=== PATIENT | male | born 1935 | race Caucasian/White ===

== ENCOUNTER 2022-06-02 16:25 | Inpatient (IN) | payer MEDICARE, BC, SELFPAY ==
[2022-06-02] VITALS (7 sets, daily range): BP systolic 151–176; BP diastolic 58–76; PULSE 60–72; RESP 20; TEMP 36.6–36.8; O2SAT 91–92; BMI 30.5
--- NOTE | 2022-06-02 17:11 | CRLHL7_ITS ---
For Patients: As a result of the Cures Act, medical imaging exams and procedure reports are released immediately into your electronic medical record. You may view this report before your referring provider. If you have questions, please contact your health care provider. INDICATION: Congestive heart failure. TECHNIQUE: Chest 1 views. COMPARISON: None. FINDINGS: Cardiovascular and mediastinum: Mild cardiomegaly with aortic arch calcifications. Left chest wall pacemaking device. Lungs and pleural spaces: Increased interstitial markings. Small bilateral pleural effusions. No pneumothorax. Bones and soft tissues: No significant findings. IMPRESSION: Mild pulmonary edema with small pleural effusions, likely related to CHF. Dictated by Luis Herbert MD @ 06/02/2022 7:11:15 PM (Electronically Signed)
--- NOTE | 2022-06-02 17:30 | P.IMHP_ITS ---
Hospitalist- H&P: HPI History of Present Illness Date Seen: 06/02/22 Chief complaint: Direct Admin Narrative: ADMISSION HISTORY AND PHYSICAL - HOSPITALIST Chief Complaint: Everybody is worried about my low oxygen sats. 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 His original appointment, 8 days ago, was for itchy skin. He then was noted to have saturations on room air at 88%. He tells me ?everyone got excited? - he goes on to tell me that throughout the summer he has had increasing dyspnea on exertion. He loves to garden and has noted he has has to sit more often and feels more short of breath. This has accelerated in the last 14 days. He has been unable to sleep flat and he wakes up feeling short of breath in the middle of the night. It sounds as if he has 2-3 pillow orthopnea. Yesterday he was trying to walk to the mailbox and felt very short of breath. He made it just inside his door and had a syncopal event. He was uninjured. He does not complain of palpitations or chest pain. He denies arm pain or shoulder pain. He does notice now as it has been pointed out that he has some swelling in his ankles. After his appointment 8 days ago he was started on oral furosemide 40 mg q.a.m.. He continued to be hypoxic and his PCP, Dr. Martini, ordered home oxygen. At today's follow-up he remains hypoxic on room air, he did not bring his O2, and as described above he had a syncopal episode yesterday. He is seen today in the hospital room as a direct admit from Dr. Martini's office. Elizabeth, his , relates that his baseline weight is about 215-218. His weight in clinic and on the floor today's 225. His PCP contacted the hospital medicine service for direct admission for acute heart failure and to rule out other etiologies of his shortness of breath. I've updated the PFSH, medications and allergies in the [facility] tabs. INVESTIGATIONS: LABS/MICRO/ECG/IMAGING From the clinic he had labs twice: On May 28 his basic metabolic panel revealed a creatinine of 1.59 with a BUN of 26 (This is his baseline). Normal electrolytes. Glucose 104. His BNP was 251 (no baseline). He was noted to be anemic with H&H of 10.2 and 30.6. (this is a decrease from 12.4 in December 2021) On June 02 a follow-up CBC showed essentially the same anemia and profile as on the . The repeat potassium was 3.9. 01/25 chest x-ray showed an enlarged cardiac silhouette, small bilateral effusions right greater than left and findings consistent with interstitial edema. I do not see a recent echo. I see a carotid study from earlier this year, as well as a nuclear med stress test. The stress exam showed no significant myocardial ischemia. His EF was approximately 65%. No regional wall motion abnormalities. He was found to have 50-69% stenosis on both the right and left internal carotid arteries. After direct admit to the floor these labs were ordered: Hemoglobin 10.1, hematocrit 31.1. Iron 37, elevated TIBC, 7% saturation, ferritin 13.1 INR 1.12 Blood gas unremarkable Creatinine 0.6, BUN 37 A1c 6.62 Otherwise normal electrolytes Negative troponin BNP 2220 which is up from 200 8 days Chest x-ray Mild pulmonary edema with small pleural effusions, likely related to CHF. ECG shows a paced rhythm. REVIEW OF SYSTEMS: 12-point ROS completed with patient and negative unless otherwise stated in HPI or below. PHYSICAL EXAM: CODE STATUS: DNR/DNI CONSTITUTIONAL: Conversive, good historian. A/O. Knows setting and context. no obvious SOB. He did desat to 79% getting from wheelchair to scale to bed. VITAL SIGNS: see record. HEENT: Normocephalic, atraumatic. PERRL, EOMI, conjunctivae pink, no scleral icterus. Ears and nose externally normal. Pharynx normal. NECK: No JVD. No carotid bruit, no thyromegaly, no adenopathy. CHEST: Clear to auscultation bilaterally HEART: S1 and S2 normal. I do hear an S3. soft ejection murmur. edema 1+ MUSCULOSKELETAL: No gross joint deformity or swelling. NEURO: Cranial nerves intact. Grossly intact. No asymmetric findings. SKIN: healing liquid nitrogen [place] from [place] destruction by paintings restorer on the dorsum of hands and forearms. healing biopsy sites on his scalp/neck. PSYCHIATRIC: Euthymic. ADMIT TO MEDSURG: FLOOR CARE DVT: Lovenox GI: PO intake Time spent: 70 minutes examining patient, conferring with family and patient, care staff, developing care plan [facility] Medical History (Updated 06/02/22 @ 20:53 by Susan Ny MD) Anemia Cardiac conduction disorder Chronic anxiety Chronic kidney disease (CKD) Hypertension Pacemaker Surgical History H/O arthroscopy of shoulder History of hip replacement History of permanent cardiac pacemaker placement Status post excisional biopsy Social History (Updated 06/02/22 @ 17:51 by Susan Ny MD) Narrative: to [employer]. 60+ years. Retired from ?everything? Adult children. Lives independently. Loves to garden. Quit smoking in the early . Highest level of school completed/degree received: high school graduate Smoking Status: Former smoker Do you use any of these nicotine containing products: None How often do you have a drink containing alcohol: never AUDIT-C Alcohol total score: 0 Non-prescribed substance use: denies use service: Yes Meds Home Medications and Allergies Home Medications Medication Instructions Recorded Confirmed Type albuterol sulfate 90 mcg/actuation 2 puff inhalation Q4H PRN 06/02/22 06/02/22 History aerosol inhaler (Ventolin HFA) amoxicillin 500 mg capsule 2,000 mg PO . DIREC PRN 06/02/22 06/02/22 History ascorbic acid (vitamin C) 500 mg 250 mg PO DAILY 06/02/22 06/02/22 History tablet aspirin 81 mg tablet,delayed 81 mg PO MOTUWETHFRSA 06/02/22 06/02/22 History release (Adult Low Dose Aspirin) cetirizine 10 mg tablet (24Hour 10 mg PO BID 06/02/22 06/02/22 History Allergy) cholecalciferol (vitamin D3) 25 25 mcg PO DAILY PRN 06/02/22 06/02/22 History mcg (1,000 unit) tablet clobetasol 0.05 % topical ointment 1 applic topical BID 06/02/22 06/02/22 H istory docusate sodium 50 mg capsule 50 mg PO DAILY 06/02/22 06/02/22 History furosemide 40 mg tablet 40 mg PO DAILY 06/02/22 06/02/22 History levothyroxine 125 mcg tablet 125 mcg PO DAILY 06/02/22 06/02/22 History metoprolol tartrate 25 mg tablet 25 mg PO BID 06/02/22 06/02/22 History nifedipine 90 mg tablet,extended 90 mg PO DAILY 06/02/22 06/02/22 History release omeprazole 20 mg capsule,delayed 20 mg PO BID 06/02/22 06/02/22 History release pravastatin 20 mg tablet 20 mg PO HS 06/02/22 06/02/22 History sertraline 50 mg tablet 50 mg PO DAILY 06/02/22 06/02/22 History tramadol 50 mg tablet 50 mg PO BID 06/02/22 06/02/22 History Allergies Allergy/AdvReac Type Severity Reaction Status Date / Time cefaclor [From Ceclor] Allergy Hives Verified 06/02/22 16:56 doxazosin Allergy Verified 06/02/22 16:56 codeine AdvReac Verified 06/02/22 16:56 erythromycin base AdvReac Nausea Verified 06/02/22 16:56 lisinopril Allergy Uncoded 06/02/22 16:56 trazodone Allergy Anxiety Uncoded 06/02/22 16:56 Exam Const: Vital Signs, click to edit/add: Vital Signs - 24 hr 06/02/22 17:01 Temperature 98.0 F Pulse Rate [Left P ulse Oximeter] 72 Respiratory Rate 20 Blood Pressure [Ri ght Arm] 151/58 H Pulse Oximetry 92 Oxygen Delivery Me thod Nasal Cannula Oxygen Flow Rate 2 Assessment and Plan Assessment and plan (1) Acute respiratory failure, unspecified whether with hypoxia or hypercapnia: Problem comment: VBG unremarkable. 2 L per nasal cannula to keep sats at 90-92%. No sign of infection. Likely all heart failure. Diuresing. Echo tomorrow. Status: Acute (2) Syncope and collapse: Problem comment: First and only occurrence yesterday. Will place on telemetry and follow closely. Status: Acute (3) Dyspnea on exertion: Problem comment: Differential diagnosis includes heart failure, acute coronary syndrome, COPD Presentation and history and labs tonight most consistent with CHF. Status: Acute (4) Orthopnea: Status: Acute (5) PND (paroxysmal nocturnal dyspnea): Status: Acute (6) Pacemaker: Status: Acute (7) Cardiac conduction disorder: Problem comment: Paced - no cardiology office visits in the recent past. Device checks are up to date. Stress exam and carotid exam done earlier this year, reported above. Status: Acute (8) Chronic kidney disease (CKD): Status: Acute (9) Hypertension: Problem comment: Continue metoprolol, nifedipine Status: Acute (10) Chronic anxiety: Problem comment: Continue Zoloft Status: Acute (11) Anemia: Problem comment: Iron deficient, chronic disease. Trend. Status: Acute
[2022-06-02 17:41] LABS: HCO3 VBG 29 mmol/L (21-28); Ionized Calcium* 1.13 mmol/L (1.11-1.30); PCO2 VBG 46 mmHG (40-50); PO2 VBG 33.3 mmHG (25-47); pH VBG 7.407 (7.32-7.43)
[2022-06-02 17:43] LABS: Immature Reticulocyte Fraction 25.9 % (2.3-13.4); Lactate* 0.9 mmol/L (0.5-1.9); Reticulocyte Hemoglobin Equivi 22.1 pg (29.0-35.0); Reticulocyte Percent 2.6 % (0.5-2.0)
[2022-06-02 17:57] LABS: Albumin* 4.6 g/dL (3.3-5.0)
[2022-06-02 17:58] LABS: Chloride* 99 mmol/L (96-114); Potassium* 3.7 mmol/L (3.6-5.1); Sodium* 137 mmol/L (135-149)
[2022-06-02 18:00] LABS: Aspartate Amino Transferase* 23 U/L (12-35); Carbon Dioxide* 26 mmol/L (20-32); Creatinine* 1.6 mg/dL (0.5-1.5); Est. Creatinine Clearance* 36.38; Estimated Glomerular Filt Rate 42 ml/min; INR 1.12 (0.91-1.10); Prothrombin Time 14.8 Seconds
[2022-06-02 18:01] LABS: Alanine Aminotransferase* 10 U/L (4-50); Alkaline Phosphatase* 83 U/L (40-150); Blood Urea Nitrogen* 37 mg/dL (7-30); Calcium* 9.1 mg/dL (8.4-10.6); Glucose* 106 mg/dL (60-115); Total Protein* 8.1 g/dL (6.0-8.3)
[2022-06-02 18:04] LABS: Hemoglobin A1C* 6.62 % (0-5.6)
[2022-06-02 18:10] LABS: NT Pro B Type NatriureticPept* 2220 PG/mL (0-450)
[2022-06-02 18:21] LABS: Troponin I* < 0.01 ng/mL (0.01-0.04)
[2022-06-02 18:29] LABS: SARS PCR* Negative SARS-CoV-2 (Negative)
[2022-06-02 18:29] LABS: Iron* 37 ug/dL (49-181)
[2022-06-02 18:33] LABS: Appearance Urine Clear (Clear); Bilirubin Urine Negative (Negative); Blood Urine Negative (Negative); Color Urine Yellow (Yellow); Glucose Urine Negative (Negative); Ketones Urine Negative (Negative); Leukocyte Esterase Urine Negative (Negative); Nitrite Urine Negative (Negative); Protein Urine Negative (Negative); Urobilinogen Urine 0.2 (0.2-1.0); pH Urine 5.5 (5.0-8.5)
[2022-06-02 18:36] LABS: Ferritin* 13.1 ng/mL (17.9-464.0)
[2022-06-02] MEDS: FUROSEMIDE 10 MG/ML inj 80 MG IVP (18:37)
[2022-06-02] MEDS: CLOBETASOL 0.05% TOPICAL (18:37)
[2022-06-02] MEDS: POTASSIUM CHLORIDE 10 MEQ CAPSULE ER 20 MEQ PO (18:37)
[2022-06-02] MEDS: ASPIRIN 81 MG TABLET EC PO (18:37)
[2022-06-02 18:38] LABS: Percent Iron Saturation 7 % (20-50); Total Iron Binding Capacity 499 ug/dL (261-462)
[2022-06-02 18:53] LABS: RBC Urine 0-2 (0-2); WBC Urine 0-2 (0-5)
[2022-06-02 19:50] LABS: Basophils Absolute Auto 0.08 K/uL (0.00-0.30); Basophils Percent Auto 0.9 % (0.0-3.0); Eosinophils Absolute Auto 0.14 K/uL (0.00-0.50); Eosinophils Percent Auto 1.6 % (0.0-7.0); Hematocrit 31.1 % (37.0-53.0); Hemoglobin* 10.1 gm/dL (13.5-17.5); Immature Granulocytes Abs Auto 0.01 K/uL (0.00-0.30); Lymphocytes Percent Auto 15.6 % (20-44); Mean Corpuscular HGB Conc 33 gm/dL (32-36); Mean Corpuscular Hemoglobin 26 pg (26-34); Mean Corpuscular Volume 80 fL (80-100); Monocytes Percent Auto 13.1 % (0.0-11.0); Neutrophils Absolute Auto 6.07 K/uL (1.7-7.0); Neutrophils Percent Auto 68.7 % (42.0-72.0); Platelet Count* 126 K/uL (140-440); RDW Coefficient of Variation % 15.9 % (11.5-15.5); Red Blood Count 3.88 m/uL (4.30-5.90); White Blood Count* 8.84 K/uL (4.50-11.00)
[2022-06-02 19:55] LABS: Slide Review Reflex No
[2022-06-02] MEDS: CETIRIZINE HCL 10 MG TABLET PO (21:20)
[2022-06-02] MEDS: METOPROLOL TARTRATE 25 MG TABLET PO (21:20)
[2022-06-02] MEDS: PRAVASTATIN SODIUM 20 MG TABLET PO (21:20)
[2022-06-02] MEDS: MELATONIN 3 MG TABLET PO (21:20)
[2022-06-02] MEDS: TRAMADOL HCL 50 MG TABLET PO (21:20)
[2022-06-02] MEDS: ENOXAPARIN 40 MG/0.4 ML INJ SUBCUT (21:20)
--- NOTE | 2022-06-02 23:23 | PC.NURSE ---
End of Shift: Patient admitted to 277 direct from clinic. Patient pleasant and cooperative. Afebrile. O2 sats above 90% on 2L NC. Sats decrease to mid 80s on 2L with activity but recover quickly at rest. SOB with activity. Denies pain. Up to bathroom with SBA. Denies any lightheadedness or dizziness. Tolerating regular diet with no nausea. C/o itchy rash to back, cream applied as ordered. Multiple healing areas per patient from candy packer appointment on backs of hands/arms and scalp. Scattered bruises on both sides of back, right upper arm and bilateral upper legs.
[2022-06-03] VITALS (8 sets, daily range): BP systolic 136–174; BP diastolic 53–82; PULSE 60–81; RESP 20–22; TEMP 36.3–37.3; O2SAT 90–93
[2022-06-03] MEDS: LEVOTHYROXINE 125 MCG TABLET PO (06:24)
[2022-06-03] MEDS: OMEPRAZOLE 20 MG CAPSULE DR PO ×2 (06:24→16:56)
--- NOTE | 2022-06-03 06:55 | PC.NURSE ---
23-07: pt pleasant and cooperative. SBA to assist with O2 tubing. With activity pt desats to mid 80s, recovers quickly. Pt attempted to lie in semi fowlers to sleep- O2 sats dropped to low 80s. Was able to position pt more upright, sats maintained 88-92% on 3.5L via NC. pt states rash to his back is very much improved, no c/o itching.
[2022-06-03 07:33] LABS: HCO3 VBG 30 mmol/L (21-28); PCO2 VBG 41 mmHG (40-50); PO2 VBG 44.6 mmHG (25-47); pH VBG 7.477 (7.32-7.43)
[2022-06-03 07:37] LABS: Hematocrit 29.5 % (37.0-53.0); Hemoglobin* 9.7 gm/dL (13.5-17.5); Mean Corpuscular HGB Conc 33 gm/dL (32-36); Mean Corpuscular Hemoglobin 26 pg (26-34); Mean Corpuscular Volume 80 fL (80-100); Platelet Count* 124 K/uL (140-440); Red Blood Count 3.71 m/uL (4.30-5.90); White Blood Count* 8.75 K/uL (4.50-11.00)
[2022-06-03 07:43] LABS: Slide Review Reflex No
[2022-06-03 07:53] LABS: Albumin* 4.4 g/dL (3.3-5.0); Chloride* 98 mmol/L (96-114); Potassium* 3.8 mmol/L (3.6-5.1); Sodium* 136 mmol/L (135-149)
[2022-06-03 07:56] LABS: Blood Urea Nitrogen* 36 mg/dL (7-30); Carbon Dioxide* 29 mmol/L (20-32); Creatinine* 1.5 mg/dL (0.5-1.5); Estimated Glomerular Filt Rate 45 ml/min; Glucose* 109 mg/dL (60-115)
[2022-06-03 08:06] LABS: NT Pro B Type NatriureticPept* 1720 PG/mL (0-450)
[2022-06-03 08:09] LABS: Troponin I* 0.01 ng/mL (0.01-0.04)
[2022-06-03] MEDS: POTASSIUM CHLORIDE 10 MEQ CAPSULE ER 20 MEQ PO ×2 (08:53→17:55)
[2022-06-03] MEDS: CETIRIZINE HCL 10 MG TABLET PO ×2 (08:53→20:26)
[2022-06-03] MEDS: DOCUSATE SODIUM 100 MG CAPSULE PO (08:53)
[2022-06-03] MEDS: FUROSEMIDE 40 MG TABLET 80 MG PO (08:53)
[2022-06-03] MEDS: NIFEdipine 30 MG TAB.ER.24 90 MG PO (08:54)
[2022-06-03] MEDS: TRAMADOL HCL 50 MG TABLET PO ×2 (08:54→20:26)
[2022-06-03] MEDS: SERTRALINE 50 MG TABLET PO (08:54)
[2022-06-03] MEDS: METOPROLOL TARTRATE 25 MG TABLET PO ×2 (08:54→20:26)
[2022-06-03] MEDS: CLOBETASOL 0.05% TOPICAL ×2 (08:55→20:27)
--- NOTE | 2022-06-03 10:48 | NUTR.NU ---
RDN with nutrition screen related to diet and diet education. RDN visited with patient and designated caregiver, Elizabeth. Patient and caregiver declined diet education at this time - patient reported he has received diet education multiple times in the past. Patient nor designated caregiver has had questions or concerns at this time. RDN will continue to monitor.
[2022-06-03 13:40] LABS: D Dimer Quantitative* 1.04 ug/ml (0.00-0.50)
--- NOTE | 2022-06-03 14:50 | PC.NURSE ---
End of Shift: Pt has been pleasant. no pain. O2 sats above 90% on 3.5L NC in bed . Sats decrease to mid 80 on 3.5L with activity. encouraging smell the aleman and hold breath and blowing out the candles. very SOB with any activity. Up to bathroom with SBA and 02, he has tubbing to reach the BR. . he denies any lightheadedness or dizziness. he is eating, drinking and voiding with no problems he got 80 lasix this am. . C/o itchy rash to arms and back, cream applied . Multiple healing areas per patient from ward secretary appointment on backs of hands/arms and scalp. Scattered bruises on both sides of back, right upper arm and bilateral upper legs. he is using his call light. family was here visting
--- NOTE | 2022-06-03 16:39 | P.IMPN_ITS ---
Progress Note: A&P Assessment and plan (1) Heart failure: Problem details: Presents with exertional dyspnea, syncope, lower extremity edema. Echo pending. Continue to diurese. Status: Acute Assessment and Plan: Echocardiogram pending. (2) Iron deficiency anemia: Problem details: Cause unknown. Monitor and outpatient evaluation if stable Status: Acute (3) Syncope and collapse: Problem details: First and only occurrence yesterday. Will place on telemetry and follow closely. Status: Acute (4) Acute respiratory failure, unspecified whether with hypoxia or hypercapnia: Problem details: VBG unremarkable. 2 L per nasal cannula to keep sats at 90-92%. No sign of infection. Likely all heart failure. Diuresing. Echo tomorrow. Status: Acute (5) Chronic kidney disease (CKD): Problem details: Stable. Follow with diuresis. Status: Acute Plan Continue in hospital for ongoing evaluation and treatment of hypoxic respiratory failure. Patient symptoms are relatively mild but is hypoxia is moderate. Further investigation is warranted if he does not respond to diuresis as the treatment for his hypoxic respiratory failure Time Spent With Patient Total time spent: Total time spent today is 40 minutes, 25 minutes in coordination of care and discussing with patient and other providers management of heart failure and hypoxia Subjective Date Seen: 06/03/22 Interval history: 86-year-old male seen in followup of hospital admission with hypoxia. Patient was seen in clinic about a week ago for itching in his skin. At that time he was noted to be hypoxic but asymptomatic. Over last week this has gotten worse with progressive hypoxia and now he is experiencing dyspnea especially with exertion. He is not having any chest pain, cold, cough, fever. No previous history of heart failure. He does have a history of a pacemaker placement. No coronary disease. He was also found to have iron deficiency anemia. No history of this as well he was unaware of this diagnosis. He did have a relatively benign upper endoscopy 3 and half years ago showing a small area of esophagitis and a mild stricture. Last colonoscopy appears to have been about 12 years ago and was also benign. Exam Narrative: Exam Narrative: He is alert and appears in no distress. Breathing is unlabored. He is on 3 L per nasal cannula and has an O2 sat in in the low 90s, 92-93 at rest. Oropharynx is normal. Neck is supple out mass or adenopathy. Respirations with diminished breath sounds. A rare basilar crackle is noted. No wheezing. Cardiovascular: S1, S2, relatively regular rhythm. Abdomen: Bowel sounds active. Abdomen is soft without tenderness or mass. Extremities with 2+ edema bilaterally. Const: Vital Signs, click to edit/add: Vital Signs - 24 hr 06/02/22 17:01 06/02/22 17:00 06/02/22 17:02 Temperature 98.0 F Pulse Rate Pulse Rate [Left P ulse Oximeter] 72 Respiratory Rate 20 Blood Pressure [Ri ght Arm] 151/58 H Pulse Oximetry 92 92 92 Oxygen Delivery Me thod Nasal Cannula Nasal Cannula Oxygen Flow Rate 2 2 06/02/22 19:55 06/02/22 19:00 06/02/22 18:00 Temperature 97.8 F Pulse Rate 72 Pulse Rate [Left P ulse Oximeter] 72 Respiratory Rate 20 20 Blood Pressure [Ri ght Arm] 176/76 H Pulse Oximetry 92 91 Oxygen Delivery Me thod Nasal Cannula Nasal Cannula Oxygen Flow Rate 2 2 06/02/22 23:00 06/02/22 23:00 06/02/22 23:00 Temperature Pulse Rate 60 Pulse Rate [Left P ulse Oximeter] 63 Respiratory Rate 20 Blood Pressure [Ri ght Arm] Pulse Oximetry 91 Oxygen Delivery Me thod Oxygen Flow Rate 06/02/22 23:00 06/02/22 23:00 06/03/22 02:40 Temperature 98.3 F 97.4 F L Pulse Rate Pulse Rate [Left P ulse Oximeter] 63 67 Respiratory Rate 20 20 22 Blood Pressure [Ri ght Arm] 157/60 H 155/56 H Pulse Oximetry 91 91 93 Oxygen Delivery Me thod Nasal Cannula Nasal Cannula Nasal Cannula Oxygen Flow Rate 2 2 3.5 06/03/22 07:21 06/03/22 08:27 06/03/22 07:45 Temperature Pulse Rate 60 Pulse Rate [Left P ulse Oximeter] Respiratory Rate 20 Blood Pressure [Ri ght Arm] Pulse Oximetry 93 Oxygen Delivery Me thod Oxygen Flow Rate 06/03/22 07:45 06/03/22 07:45 06/03/22 11:15 Temperature 97.8 F 99.2 F Pulse Rate Pulse Rate [Left P ulse Oximeter] 60 69 Respiratory Rate 20 20 22 Blood Pressure [Ri ght Arm] 150/82 H 174/63 H Pulse Oximetry 91 91 93 Oxygen Delivery Me thod Nasal Cannula Nasal Cannula Nasal Cannula Oxygen Flow Rate 3.5 3.5 3.5 Documenting provider has reviewed patient's vital signs: yes Labs Labs: Laboratory Results - last 24 hr 06/02/22 06/02/22 06/02/22 17:30 17:30 17:30 WBC 8.84 RBC 3.88 L Hgb 10.1 L Hct 31.1 L MCV 80 MCH 26 MCHC 33 RDW Coeff of [place] 15.9 H Plt Count 126 L Neut % (Auto) 68.7 Lymph % (Auto) 15.6 L [place] % (Auto) 13.1 H Eos % (Auto) 1.6 Baso % (Auto) 0.9 Neut # (Auto) 6.07 Lymph # (Auto) 1.40 [place] # (Auto) 1.20 H Eos # (Auto) 0.14 Baso # (Auto) 0.08 Abs Immat Gran (auto) 0.01 Absolute Retic 0.10 H Percent Retic 2.6 H Immature Retic Fraction 25.9 H Retic Hgb Equivalent 22.1 L INR 1.12 H D-Dimer Quant (PE/DVT) VBG pH 7.407 VBG pCO2 46 VBG pO2 33.3 VBG HCO3 29 H Sodium Potassium Chloride Carbon Dioxide BUN Creatinine Estimated Creat Clear Estimated GFR Glucose Hemoglobin A1c Lactate Calcium Ionized Calcium Danie 1.13 Magnesium Iron TIBC % Saturation Ferritin Total Bilirubin AST ALT Alkaline Phosphatase Troponin I NT-Pro-B Natriuret Pep Total Protein Albumin Urine Color Urine Appearance Urine pH Ur Specific [place] Urine Protein Urine Glucose (UA) Urine Ketones Urine Blood Urine Nitrite Urine Bilirubin Urine Urobilinogen Ur Leukocyte Esterase Urine RBC Urine WBC Ur Squamous Epith Cells Urine Bacteria SARS-CoV-2 (PCR) 06/02/22 06/02/22 06/02/22 17:30 17:30 17:30 WBC RBC Hgb Hct MCV MCH MCHC RDW Coeff of [place] Plt Count Neut % (Auto) Lymph % (Auto) [place] % (Auto) Eos % (Auto) Baso % (Auto) Neut # (Auto) Lymph # (Auto) [place] # (Auto) Eos # (Auto) Baso # (Auto) Abs Immat Gran (auto) Absolute Retic Percent Retic Immature Retic Fraction Retic Hgb Equivalent INR D-Dimer Quant (PE/DVT) VBG pH VBG pCO2 VBG pO2 VBG HCO3 Sodium 137 Potassium 3.7 Chloride 99 Carbon Dioxide 26 BUN 37 H Creatinine 1.6 H Estimated Creat Clear 36.38 Estimated GFR 42 Glucose 106 Hemoglobin A1c Lactate 0.9 Calcium 9.1 Ionized Calcium Danie Magnesium 2.0 Iron 37 L TIBC 499 H % Saturation 7 L Ferritin Total Bilirubin 1.0 AST 23 ALT 10 Alkaline Phosphatase 83 Troponin I < 0.01 L NT-Pro-B Natriuret Pep 2220 H Total Protein 8.1 Albumin 4.6 Urine Color Urine Appearance Urine pH Ur Specific [place] Urine Protein Urine Glucose (UA) Urine Ketones Urine Blood Urine Nitrite Urine Bilirubin Urine Urobilinogen Ur Leukocyte Esterase Urine RBC Urine WBC Ur Squamous Epith Cells Urine Bacteria SARS-CoV-2 (PCR) 06/02/22 06/02/22 06/02/22 17:30 17:30 17:34 WBC RBC Hgb Hct MCV MCH MCHC RDW Coeff of [place] Plt Count Neut % (Auto) Lymph % (Auto) [place] % (Auto) Eos % (Auto) Baso % (Auto) Neut # (Auto) Lymph # (Auto) [place] # (Auto) Eos # (Auto) Baso # (Auto) Abs Immat Gran (auto) Absolute Retic Percent Retic Immature Retic Fraction Retic Hgb Equivalent INR D-Dimer Quant (PE/DVT) VBG pH VBG pCO2 VBG pO2 VBG HCO3 Sodium Potassium Chloride Carbon Dioxide BUN Creatinine Estimated Creat Clear Estimated GFR Glucose Hemoglobin A1c 6.62 H Lactate Calcium Ionized Calcium Danie Magnesium Iron TIBC % Saturation Ferritin 13.1 L Total Bilirubin AST ALT Alkaline Phosphatase Troponin I NT-Pro-B Natriuret Pep Total Protein Albumin Urine Color Urine Appearance Urine pH Ur Specific [place] Urine Protein Urine Glucose (UA) Urine Ketones Urine Blood Urine Nitrite Urine Bilirubin Urine Urobilinogen Ur Leukocyte Esterase Urine RBC Urine WBC Ur Squamous Epith Cells Urine Bacteria SARS-CoV-2 (PCR) Negative SARS-CoV-2 06/02/22 06/03/22 06/03/22 18:25 07:25 07:25 WBC 8.75 RBC 3.71 L Hgb 9.7 L Hct 29.5 L MCV 80 MCH 26 MCHC 33 RDW Coeff of [place] Plt Count 124 L Neut % (Auto) Lymph % (Auto) [place] % (Auto) Eos % (Auto) Baso % (Auto) Neut # (Auto) Lymph # (Auto) [place] # (Auto) Eos # (Auto) Baso # (Auto) Abs Immat Gran (auto) Absolute Retic Percent Retic Immature Retic Fraction Retic Hgb Equivalent INR D-Dimer Quant (PE/DVT) VBG pH VBG pCO2 VBG pO2 VBG HCO3 Sodium 136 Potassium 3.8 Chloride 98 Carbon Dioxide 29 BUN 36 H Creatinine 1.5 Estimated Creat Clear 38.80 Estimated GFR 45 Glucose 109 Hemoglobin A1c Lactate Calcium 9.0 Ionized Calcium Danie Magnesium Iron TIBC % Saturation Ferritin Total Bilirubin AST ALT Alkaline Phosphatase Troponin I 0.01 NT-Pro-B Natriuret Pep 1720 H Total Protein Albumin 4.4 Urine Color Yellow Urine Appearance Clear Urine pH 5.5 Ur Specific [place] 1.010 Urine Protein Negative Urine Glucose (UA) Negative Urine Ketones Negative Urine Blood Negative Urine Nitrite Negative Urine Bilirubin Negative Urine Urobilinogen 0.2 Ur Leukocyte Esterase Negative Urine RBC 0-2 Urine WBC 0-2 Ur Squamous Epith Cells None Urine Bacteria None SARS-CoV-2 (PCR) 06/03/22 06/03/22 07:25 13:17 WBC RBC Hgb Hct MCV MCH MCHC RDW Coeff of [place] Plt Count Neut % (Auto) Lymph % (Auto) [place] % (Auto) Eos % (Auto) Baso % (Auto) Neut # (Auto) Lymph # (Auto) [place] # (Auto) Eos # (Auto) Baso # (Auto) Abs Immat Gran (auto) Absolute Retic Percent Retic Immature Retic Fraction Retic Hgb Equivalent INR D-Dimer Quant (PE/DVT) 1.04 H VBG pH 7.477 H VBG pCO2 41 VBG pO2 44.6 VBG HCO3 30 H Sodium Potassium Chloride Carbon Dioxide BUN Creatinine Estimated Creat Clear Estimated GFR Glucose Hemoglobin A1c Lactate Calcium Ionized Calcium Danie Magnesium Iron TIBC % Saturation Ferritin Total Bilirubin AST ALT Alkaline Phosphatase Troponin I NT-Pro-B Natriuret Pep Total Protein Albumin Urine Color Urine Appearance Urine pH Ur Specific [place] Urine Protein Urine Glucose (UA) Urine Ketones Urine Blood Urine Nitrite Urine Bilirubin Urine Urobilinogen Ur Leukocyte Esterase Urine RBC Urine WBC Ur Squamous Epith Cells Urine Bacteria SARS-CoV-2 (PCR)
[2022-06-03] MEDS: POTASSIUM BICARB 25 MEQ EFFERVESCENT TAB PO (16:55)
[2022-06-03] MEDS: FUROSEMIDE 10 MG/ML inj 40 MG IVP (16:56)
[2022-06-03] MEDS: ASPIRIN 81 MG TABLET EC PO (17:05)
--- NOTE | 2022-06-03 19:33 | PC.NURSE ---
[id number] ?Pt alert and oriented x4 Pt. denies pain. O2 sats above 90% on 3.5L NC in bed? . Sats decrease to mid 80 on 3.5L with activity.? encouraging smell the aleman and hold breath and blowing out the candles. Pt. SOB w/activity. ?Up to bathroom w/SBA and 02,? pts. tube reaches the BR. he denies any lightheadedness or dizziness. he is eating, drinking and voiding with no problems Pt. got 40mg IVP furosemide this evening and up to the bathroom frequently. Pt. uses his call light and understands bed and chair alarms are on for safety.
[2022-06-03] MEDS: ENOXAPARIN 40 MG/0.4 ML INJ SUBCUT (20:25)
[2022-06-03] MEDS: PRAVASTATIN SODIUM 20 MG TABLET PO (20:27)
[2022-06-04] VITALS (7 sets, daily range): BP systolic 152–164; BP diastolic 59–69; PULSE 63–81; RESP 18–20; TEMP 36.4–37.1; O2SAT 91–93
[2022-06-04] MEDS: OMEPRAZOLE 20 MG CAPSULE DR PO (06:40)
[2022-06-04] MEDS: LEVOTHYROXINE 125 MCG TABLET PO (06:40)
[2022-06-04 07:19] LABS: HCO3 VBG 33 mmol/L (21-28); PCO2 VBG 48 mmHG (40-50); PO2 VBG 56.2 mmHG (25-47)
--- NOTE | 2022-06-04 07:22 | PC.NURSE ---
shift note -: pleasant and cooperative. SBA. 3L O2 via NC and maintaining 88-93%. Pt able to lie flat to sleep and not desat (unlike previous night). Pt encouraged to rotate side lying positions. Pt desats with ambulation to low 80s, rebounds quickly with deep breaths and rest. VSS. Afebrile. Pt desat to 71% on RA as he removed his NC while in BR. 5L O2 placed on pt to assist with rebound for short period.
[2022-06-04 07:37] LABS: Basophils Absolute Auto 0.07 K/uL (0.00-0.30); Basophils Percent Auto 0.7 % (0.0-3.0); Hematocrit 31.3 % (37.0-53.0); Hemoglobin* 10.1 gm/dL (13.5-17.5); Immature Granulocytes Abs Auto 0.03 K/uL (0.00-0.30); Lymphocytes Percent Auto 14.1 % (20-44); Mean Corpuscular HGB Conc 32 gm/dL (32-36); Mean Corpuscular Hemoglobin 26 pg (26-34); Mean Corpuscular Volume 79 fL (80-100); Monocytes Percent Auto 15.7 % (0.0-11.0); Neutrophils Percent Auto 67.2 % (42.0-72.0); Platelet Count* 141 K/uL (140-440); RDW Coefficient of Variation % 15.5 % (11.5-15.5); Red Blood Count 3.94 m/uL (4.30-5.90); White Blood Count* 9.83 K/uL (4.50-11.00)
[2022-06-04 07:45] LABS: Slide Review Reflex No
[2022-06-04 07:47] LABS: Chloride* 95 mmol/L (96-114); Potassium* 3.7 mmol/L (3.6-5.1); Sodium* 137 mmol/L (135-149)
[2022-06-04 07:50] LABS: Blood Urea Nitrogen* 34 mg/dL (7-30); Calcium* 9.1 mg/dL (8.4-10.6); Carbon Dioxide* 30 mmol/L (20-32); Creatinine* 1.5 mg/dL (0.5-1.5); Estimated Glomerular Filt Rate 45 ml/min; Glucose* 114 mg/dL (60-115)
[2022-06-04] MEDS: ACETAMINOPHEN 325 MG TABLET PO ×2 (08:49→14:28)
[2022-06-04] MEDS: FUROSEMIDE 40 MG TABLET 80 MG PO (08:50)
[2022-06-04] MEDS: SERTRALINE 50 MG TABLET PO (08:50)
[2022-06-04] MEDS: CETIRIZINE HCL 10 MG TABLET PO (08:50)
[2022-06-04] MEDS: DOCUSATE SODIUM 100 MG CAPSULE PO (08:50)
[2022-06-04] MEDS: POTASSIUM CHLORIDE 10 MEQ CAPSULE ER 20 MEQ PO (08:50)
[2022-06-04] MEDS: TRAMADOL HCL 50 MG TABLET PO (08:51)
[2022-06-04] MEDS: NIFEdipine 30 MG TAB.ER.24 90 MG PO (08:51)
[2022-06-04] MEDS: CLOBETASOL 0.05% TOPICAL (08:52)
[2022-06-04] MEDS: METOPROLOL TARTRATE 25 MG TABLET PO (08:52)
--- NOTE | 2022-06-04 13:42 | RESP.RT ---
Patient requires increased supplemental O2 with activity over his home 2L O2 prescription. He does have portable O2 at home and has been using his O2. At this time he is requiring 4L O2 with activity to recover, but he still desaturates and does not want to use more O2.
--- NOTE | 2022-06-04 14:50 | PC.NURSE ---
End of Shift: Pt his pleasant. he is joking with staff/ ? right side abd pain 2-5/10 pain. he got pain meds this am and po Tylenol he said pain was better and after he said pain was not better and po Tylenol was given again. O2 sats above 90% on 2.0 NC in bed? . Sats decrease to mid 80 on 2 L with activity.? and 72 % on RA. we are still encouraging smell the aleman and hold breath and blowing out the candles. ? still SOB with any activity but better than yesterday. . ? Up to bathroom with SBA and 02,? he has tubbing to reach the BR.? he still denies any lightheadedness or dizziness. He is eating, drinking and voiding, with no problems? he got 80 mg po Lasix again today. C/o of a itchy rash back, cream applied. Multiple healing areas per patient from leach cell operator appointment on backs of hands/arms and scalp. bruises on both sides of back, right upper arm and bilateral upper legs.? he is using his call light.? and oldest son was here visiting? he is currently getting a echo
--- NOTE | 2022-06-04 15:54 | P.DS_ITS ---
DS: Providers Provider Date Seen: 06/04/22 Date of admission: 06/02/22 17:01 Primary care physician: Lion Martini MD Admitting Clinician: Susan Ny MD Attending Physician on discharge: Susan Ny MD Date of Discharge: 06/04/22 DS: Diagnosis Discharge Diagnosis (1) Hypoxia: Status: Acute Problem details: Cause is uncertain but leading considerations include pulmonary hypertension, heart failure with preserved ejection fraction, chronic lung disease. Will be discharged to continue on oxygen pending outpatient evaluation (2) Pulmonary hypertension: Status: Acute Problem details: New diagnosis on preliminary echo report. Outpatient followup (3) Heart failure with preserved ejection fraction: Status: Acute Problem details: Echocardiogram on preliminary report is unremarkable except for pulmonary hypertension with a right ventricular pressure of 40 mmHg plus right atrial pressure (4) Iron deficiency anemia: Status: Acute Problem details: Cause unknown. No evidence of bleeding. Hemoglobin is stable. Outpatient evaluation warranted. (5) Syncope and collapse: Status: Acute Problem details: Syncope prior to admission. Asymptomatic during hospital stay (6) Chronic kidney disease (CKD): Status: Acute Problem details: Stable. Follow with diuresis. Outpatient followup of electrolytes and renal function DS: Summary Hospital Course Hospital Course: 86-year-old male admitted to the hospital with hypoxia, worsening exertional dyspnea, orthopnea and a syncopal episode. Evaluation during the hospital stay included chest x-ray which suggested mild pulmonary edema. He was treated with diuretics for this and had improvement but not resolution of his hypoxia. He was only mildly symptomatic with his hypoxia. He did not have a fever. No significant cough or chest pain. Echocardiogram was unremarkable except for pulmonary hypertension with a right ventricular systolic pressure around 40 mmHg plus right atrial pressure. This appeared to be a new finding. Status at Discharge Functional status at discharge: independent ambulation Overall status at discharge: patient is back to baseline Time Spent with Patient Time attestation: Total time spent providing and/or coordinating discharge services: Time spent: Greater than 30 minutes Exam Narrative: Exam Narrative: He is alert and appears in no distress. Respirations with occasional basilar crackle. No wheezing. Fair air exchange all lung [place]. Cardiovascular: S1, S2, regular rate and rhythm. No murmur gallop or rub. Abdomen: Bowel sounds active. Abdomen is soft without tenderness or mass. Extremities with 1+ edema bilaterally. Const: Vital Signs, click to edit/add: Vital Signs - 24 hr 06/03/22 23:00 06/03/22 23:00 06/03/22 23:00 Temperature 98.2 F Pulse Rate Pulse Rate [Left P ulse Oximeter] 72 72 Respiratory Rate 20 20 Blood Pressure [Ri ght Arm] 169/71 H Pulse Oximetry 91 91 Oxygen Delivery Me thod Nasal Cannula Oxygen Flow Rate 3 06/03/22 23:00 06/03/22 19:00 06/03/22 23:00 Temperature 98.2 F Pulse Rate 72 Pulse Rate [Left P ulse Oximeter] 81 Respiratory Rate 20 20 Blood Pressure [Ri ght Arm] 163/61 H Pulse Oximetry 91 93 Oxygen Delivery Me thod Nasal Cannula Nasal Cannula Oxygen Flow Rate 3 3 06/04/22 03:00 06/04/22 07:49 06/04/22 07:30 Temperature 97.6 F Pulse Rate 63 Pulse Rate [Left P ulse Oximeter] 71 Respiratory Rate 20 Blood Pressure [Ri ght Arm] 154/69 H Pulse Oximetry 93 93 Oxygen Delivery Me thod Nasal Cannula Oxygen Flow Rate 3 06/04/22 07:30 06/04/22 07:30 06/04/22 07:30 Temperature 98.3 F Pulse Rate Pulse Rate [Left P ulse Oximeter] 74 74 Respiratory Rate 20 18 Blood Pressure [Ri ght Arm] 164/64 H Pulse Oximetry 93 93 Oxygen Delivery Me thod Nasal Cannula Nasal Cannula Oxygen Flow Rate 2 2 06/04/22 11:47 Temperature 98.8 F Pulse Rate Pulse Rate [Left P ulse Oximeter] 65 Respiratory Rate 20 Blood Pressure [Ri ght Arm] 157/59 H Pulse Oximetry 91 Oxygen Delivery Me thod Nasal Cannula Oxygen Flow Rate 2 Documenting provider has reviewed patient's vital signs: yes DS: Data Data Completed and Pending Labs on day of discharge: Labs from last 24 hours 06/04/22 06/04/22 06/04/22 06:56 06:56 06:56 WBC 9.83 RBC 3.94 L Hgb 10.1 L Hct 31.3 L MCV 79 L MCH 26 MCHC 32 RDW Coeff of Torrey 15.5 Plt Count 141 Neut % (Auto) 67.2 Lymph % (Auto) 14.1 L [place] % (Auto) 15.7 H Eos % (Auto) 2.0 Baso % (Auto) 0.7 Neut # (Auto) 6.60 Lymph # (Auto) 1.40 [place] # (Auto) 1.50 H Eos # (Auto) 0.20 Baso # (Auto) 0.07 Abs Immat Gran (auto) 0.03 VBG pH 7.450 H VBG pCO2 48 VBG pO2 56.2 H VBG HCO3 33 H Sodium 137 Potassium 3.7 Chloride 95 L Carbon Dioxide 30 BUN 34 H Creatinine 1.5 Estimated Creat Clear 38.80 Estimated GFR 45 Glucose 114 Calcium 9.1 Discharge Plan Discharge Disposition: Home, Self-Care Date of Admission: 06/02/22 17:01 Primary Care Provider: Lion Martini Condition: Improved Anticipated Discharge Date/Time: 06/04/22 17:00 Discharge Medications: New potassium chloride 10 mEq Capsule, Extended Release 20 meq PO BIDWM Qty: 120 0RF sennosides-docusate sodium [Stool Softener-Laxative] 8.6-50 mg Tablet 1 tab PO BID PRNQty: 60 0RF Continued albuterol sulfate [Ventolin HFA] 90 mcg/actuation HFA aerosol inhaler 2 puff INHALATION Q4H PRN amoxicillin 500 mg capsule 2,000 mg PO . DIREC PRN Label Comments: TAKE 4 CAPSULES 1/2 HOUR BEFORE DENTAL PROCEDURE Rx Instructions: PRIOR TO DENTAL APPTS levothyroxine 125 mcg tablet 125 mcg PO DAILY metoprolol tartrate 25 mg tablet 25 mg PO BID nifedipine 90 mg tablet extended release 90 mg PO DAILY omeprazole 20 mg capsule,delayed release(DR/EC) 20 mg PO BID pravastatin 20 mg tablet 20 mg PO HS sertraline 50 mg tablet 50 mg PO DAILY tramadol 50 mg tablet 50 mg PO BID Rx Instructions: TAKE ONE TABLET BY MOUTH IN THE MORNING AND ONE TABLET AT BEDTIME. MAY USE EXTRA 1/2 TABLET DAILY NEEDED aspirin [Adult Low Dose Aspirin] 81 mg tablet,delayed release (DR/EC) 81 mg PO MOTUWETHFRSA Rx Instructions: TAKES 6 DAYS PER WEEK CURRENTLY ascorbic acid (vitamin C) 500 mg tablet 250 mg PO DAILY clobetasol 0.05 % ointment 1 applic TOPICAL BID cetirizine [24Hour Allergy] 10 mg tablet 10 mg PO BID cholecalciferol (vitamin D3) 25 mcg (1,000 unit) tablet 25 mcg PO DAILY PRN Rx Instructions: TAKES IN WINTERTIME docusate sodium 50 mg capsule 50 mg PO DAILY Changed furosemide 40 mg tablet 40 mg PO BID@ Qty: 60 0RF Discharge Orders: Discharge Order (Routine); Ordered 06/04/22 Ordered By: Virgil Cunningham Activity Restrictions/Additional Instructions: Resume your oxygen at home as prescribed by your doctor in the clinic. See your doctor next week for a follow-up appointment to assess your breathing and heart failure. You will also need blood tests to check your kidney function and electrolytes next week. Consider getting a sleep study to evaluate for sleep apnea. Check your weight every day. If you are gaining weight or getting swelling in her ankles or more short of breath or coughing he likely will need more diuretic. Your echocardiogram shows a condition called pulmonary hypertension. For now y our treatment is supplemental oxygen. You may need to see a specialist for this as well. Activity Level: Activity as Tolerated Discharge Diet: 2 gm Sodium Follow Up Appointments: Lion Martini MD [Primary Care Provider] - (In 5-7 days) Forms: [employer] Info Instructions
== END 2022-06-04 17:18 | disposition home or self-care (01) | DRG 291 ==
PROVIDERS: Family Medicine; Admitting Provider Family Medicine; PCP Family Medicine; Visit Provider Family Medicine
DX: I13.0 Hypertensive heart and chronic kidney disease with heart failure and stage 1 through stage 4 chronic kidney disease, or unspecified chronic kidney disease (principal); J96.02 Acute respiratory failure with hypercapnia; J96.01 Acute respiratory failure with hypoxia; I50.30 Unspecified diastolic (congestive) heart failure; I27.20 Pulmonary hypertension, unspecified; N18.9 Chronic kidney disease, unspecified; Z95.0 Presence of cardiac pacemaker; I45.9 Conduction disorder, unspecified; F41.9 Anxiety disorder, unspecified; D50.9 Iron deficiency anemia, unspecified
CPT/HCPCS: 36415; 71045; 80048; 80053; 81003; 81015; 82040; 82330; 82728; 82803; 83036; 83540; 83550; 83605; 83735; 83880; 84484; 85025; 85027; 85045; 85379; 85610; 87635; 93005; 93306; 93325; 94761; 97110; 97116; 97162; 97165; 97535; G0378; A9270; J1650; J1940

== ENCOUNTER 2022-06-16 13:17 | Outpatient (CLI) | payer MEDICARE, BC, SELFPAY | END 2022-06-16 13:18 | disposition home or self-care (01) | LOC: AMB 06-19 18:44 | PROVIDERS: PCP Family Medicine; Visit Provider Family Medicine | DX: R55 Syncope and collapse (principal) | CPT/HCPCS: A0425; A0427 ==

== ENCOUNTER 2022-06-16 13:41 | Inpatient (IN) | payer MEDICARE, BC, SELFPAY ==
[2022-06-16] VITALS (8 sets, daily range): BP systolic 129–186; BP diastolic 53–69; PULSE 67–84; RESP 18; TEMP 36.3–36.8; O2SAT 92–99; BMI 27.8; BMI 28.1
--- NOTE | 2022-06-16 14:06 | ED_ITS ---
HPI - General Adult General Time Seen by Provider: 14:07 Date Seen: 06/16/22 Chief complaint: Fall/Minor Trauma Stated complaint: Fall Time Seen by Provider: 06/16/22 14:06 Source: patient, RN notes reviewed and other (Received phone call from Dr. Martini) Mode of arrival: ambulatory Limitations: no limitations History of Present Illness HPI narrative: Patient is an 86-year-old male sent by EMS from clinic. He has had 4 falls in the last couple days. Two of them happening today per her report. He was in seeing Cardiology at [facility], follow-up of his chronic diastolic heart failure. He was reportedly admitted recently here at our hospital for acute diastolic heart failure. Military Nurse thought perhaps he was maybe too dry. He did decrease Lasix. He did get a CT scan of his head for his fall today at home. Coming out of CT scan, patient was walking, started to feel wobbly and fell and hit the back of his head. There is no open wound, no loss of consciousness. Patient is on aspirin, no other blood thinners. They wondered if he should perhaps have some fluids. His primary care provider Dr. Martini did not feel it was safe for him to go home at this time. He resides independently in [place] with his . Up until about 2 weeks ago he was active gardening, started to become too short of breath and was hospitalized for CHF. They wonder if he maybe needs some fluids. He does have a pacemaker in it is felt that this current pacemaker should have 3 years of life left in it. Patient states he has just been wobbly when he has fallen. Denies any dizziness or lightheadedness, no sense of irregular heartbeat, no shortness of breath. He denies any loss of consciousness. Denies any current headache. No visual changes. Related Data Home Medications Medication Instructions Recorded Confirmed albuterol sulfate 90 mcg/actuation 2 puff inhalation Q4H PRN 06/02/22 06/02/22 aerosol inhaler (Ventolin HFA) amoxicillin 500 mg capsule 2,000 mg PO . DIREC PRN 06/02/22 06/02/22 ascorbic acid (vitamin C) 500 mg 250 mg PO DAILY 06/02/22 06/02/22 tablet aspirin 81 mg tablet,delayed 81 mg PO MOTUWETHFRSA 06/02/22 06/02/22 release (Adult Low Dose Aspirin) cetirizine 10 mg tablet (24Hour 10 mg PO BID 06/02/22 06/02/22 Allergy) cholecalciferol (vitamin D3) 25 25 mcg PO DAILY PRN 06/02/22 06/02/22 mcg (1,000 unit) tablet clobetasol 0.05 % topical ointment 1 applic topical BID 06/02/22 06/02/22 docusate sodium 50 mg capsule 50 mg PO DAILY 06/02/22 06/02/22 levothyroxine 125 mcg tablet 125 mcg PO DAILY 06/02/22 06/02/22 metoprolol tartrate 25 mg tablet 25 mg PO BID 06/02/22 06/02/22 nifedipine 90 mg tablet,extended 90 mg PO DAILY 06/02/22 06/02/22 release omeprazole 20 mg capsule,delayed 20 mg PO BID 06/02/22 06/02/22 release pravastatin 20 mg tablet 20 mg PO HS 06/02/22 06/02/22 sertraline 50 mg tablet 50 mg PO DAILY 06/02/22 06/02/22 tramadol 50 mg tablet 50 mg PO BID 06/02/22 06/02/22 Previous Rx's Medication Instructions Recorded furosemide 40 mg tablet 40 mg PO BID@,16 #60 tabs 06/04/22 potassium chloride 10 mEq 20 meq PO BIDWM #120 caps 06/04/22 capsule,extended release sennosides 8.6 mg-docusate sodium 1 tab PO BID PRN #60 tabs 06/04/22 50 mg tablet (Stool Softener-Laxative) Allergies Allergy/AdvReac Type Severity Reaction Status Date / Time cefaclor [From [facility]] Allergy Hives Verified 06/02/22 16:56 doxazosin Allergy Verified 06/02/22 16:56 codeine AdvReac Verified 06/02/22 16:56 erythromycin base AdvReac Nausea Verified 06/02/22 16:56 lisinopril Allergy Uncoded 06/02/22 16:56 trazodone Allergy Anxiety Uncoded 06/02/22 16:56 Review of Systems Status of ROS: Reports: 10 or more systems reviewed and unremarkable except as noted in History and below [facility] Medical History (Updated 06/16/22 @ 16:36 by Brenna Stone MD) Anemia Cardiac conduction disorder Chronic anxiety Chronic kidney disease (CKD) Dyspnea on exertion Heart failure Hypertension Iron deficiency anemia Orthopnea Pacemaker PND (paroxysmal nocturnal dyspnea) Surgical History H/O arthroscopy of shoulder History of hip replacement History of permanent cardiac pacemaker placement Status post excisional biopsy Social History (Updated 06/02/22 @ 17:51 by Susan Ny MD) Narrative: to [employer]. 60+ years. Retired from ?everything? Adult children. Lives independently. Loves to garden. Quit smoking in the early . Highest level of school completed/degree received: high school graduate Smoking Status: Former smoker Do you use any of these nicotine containing products: None How often do you have a drink containing alcohol: never AUDIT-C Alcohol total score: 0 Non-prescribed substance use: denies use service: Yes Exam Const: Vital Signs, click to edit/add: Vital Signs - 24 hr 06/16/22 13:46 Temperature 97.3 F L Pulse Rate [Pulse Oximeter] 70 Respiratory Rate 18 Blood Pressure [Le ft Upper Arm] 158/63 H Pulse Oximetry 92 Oxygen Delivery Me thod Nasal Cannula Documenting provider has reviewed patient's vital signs: yes Common normals: no apparent distress, average body habitus, oriented x3, no limitations, healthy appearing and alert General appearance: cooperative, comfortable and well kempt HENMT: Common normals: normocephalic, hearing grossly normal bilaterally, external ears normal, external nose normal, nasal mucous membranes and turbinates normal, moist oral mucous membranes, oropharynx normal and dentition normal Head and scalp: normocephalic Nose: external nose normal and nasal mucous membranes and turbinates normal External ear: external ears normal Other: Has right frontal scalp hematoma. I cannot find any visible or palpable posterior wound. No visible hematoma, certainly no open wounds. No midline tenderness of his neck, good range of motion of his neck. Eye: Common normals: PERRL, EOMs intact bilaterally, conjunctivae normal and no scleral icterus Conjunctiva: conjunctiva(e) normal Pupil: PERRL Neck & C-Spine: Common normals: full ROM, no lymphadenopathy, supple, no meningeal signs, no JVD and thyroid normal Thyroid: thyroid normal Resp: Common normals: normal respiratory effort, no retractions, no use of accessory muscles and clear to auscultation bilaterally Auscultation: clear to auscultation bilaterally Cardio: Common normals: no JVD, regular rate, regular rhythm, S1 normal heart sound, S2 normal heart sound, no gallops, no clicks and no rub Rate: regular rate Rhythm: regular rhythm Heart sounds: S1 normal and S2 normal Other: Very soft systolic murmur heard left sternal border. GI: Common normals: Normal to inspection, nondistended, normoactive bowel sounds present, soft to palpation, non-tender and no hepatosplenomegaly Palpation: soft and no hepatosplenomegaly Back & Pelvis: Common normals: thoracic and lumbar spine normal to inspection and no thoracic nor lumbar tenderness Extremity: Common normals: normal to inspection, full ROM, normal capillary refill, no joint enlargement, no clubbing, cyanosis or edema, no calf tenderness and no pedal edema Neuro: [place] Coma Scale: document GCS findings [place] coma scale eye opening: Spontaneous (4) [place] coma scale verbal response: Orientated (5) [place] coma scale motor response: Obey commands (6) [place] coma scale total score: 15 Common normals: oriented x3, CN's II-XII intact bilaterally, moves all extremities, no focal motor deficits and no sensory deficits noted Sensorium/orientation: alert Meningeal signs: no meningeal signs Speech: speech normal Psych: Appearance: well kempt Course Course Hospital Course: He will be on cardiac monitoring, pulse oximetry. Will get a full complement of labs. We will consider other etiologies outside of being over diuresed. Will certainly have orthostatic vitals done. We will need to repeat his head CT as he hit the back of his head. Falls could certainly be from many etiologies. Consultations Consultation #1: Have spoken with our hospitalist regarding this patient. He has acute on emergency services director laisha kidney injury, mild hyponatremia and hypokalemia. His hyponatremia may be affecting him as it is new for him. His head CT is showing no acute intracranial pathology. He still does have some pleural effusions and stable cardiomegaly on his chest x-ray, thus, putting him at risk for CHF of over diuresed. I am starting some gentle maintenance IV fluids with normal saline with 20 mEq potassium. The hospitalists will be down to assess the patient. Time: 15:36 Vital Signs Vital signs: Initial Vital Signs Temperature 97.3 F L 06/16/22 13:46 Temperature Source Temporal Artery Scan 06/16/22 13:46 Pulse Rate 70 06/16/22 13:46 Respiratory Rate 18 06/16/22 13:46 Blood Pressure 158/63 H 06/16/22 13:46 Blood Pressure Mean 94 06/16/22 13:46 Blood Pressure Position Supine 06/16/22 13:46 Pulse Oximetry 92 06/16/22 13:46 Oxygen Delivery Method 06/16/22 13:46 Vital Signs Temperature 97.3 F L 06/16/22 13:46 Pulse Rate 70 06/16/22 13:46 Respiratory Rate 18 06/16/22 13:46 Blood Pressure 158/63 H 06/16/22 13:46 Pulse Oximetry 92 06/16/22 13:46 Oxygen Delivery Method 06/16/22 13:46 Temperature 97.3 F L 06/16/22 13:46 Pulse Rate 70 06/16/22 13:46 Respiratory Rate 18 06/16/22 13:46 Blood Pressure 158/63 H 06/16/22 13:46 Pulse Oximetry 92 06/16/22 13:46 Oxygen Delivery Method 06/16/22 13:46 Medical Decision Making Lab Data Lab results reviewed: Yes I reviewed the patient's lab results Labs: Lab Results 06/16/22 06/16/22 06/16/22 Range/Units 14:12 14:12 14:12 WBC 7.67 (4.50-11.00) K/uL RBC 4.21 L (4.30-5.90) m/uL Hgb 10.8 L (13.5-17.5) gm/dL Hct 33.6 L (37.0-53.0) % MCV 80 (80-100) fL MCH 26 (26-34) pg MCHC 32 (32-36) gm/dL RDW Coeff of Tor[place] 15.0 (11.5-15.5) % Plt Count 170 (140-440) K/uL Neut % (Auto) 66.4 (42.0-72.0) % Lymph % (Auto) 16.2 L (20-44) % [place] % (Auto) 14.1 H (0.0-11.0) % Eos % (Auto) 1.8 (0.0-7.0) % Baso % (Auto) 1.2 (0.0-3.0) % Neut # (Auto) 5.10 (1.7-7.0) K/uL Lymph # (Auto) 1.20 (0.90-2.90) K/uL [place] # (Auto) 1.10 H (0.00-0.90) K/UL Eos # (Auto) 0.14 (0.00-0.50) K/uL Baso # (Auto) 0.09 (0.00-0.30) K/uL Abs Immat Gran (auto) 0.02 (0.00-0.30) K/uL Sodium 132 L (135-149) mmol/L Potassium 3.4 L (3.6-5.1) mmol/L Chloride 88 L (96-114) mmol/L Carbon Dioxide 31 (20-32) mmol/L BUN 67 H (7-30) mg/dL Creatinine 2.7 H (0.5-1.5) mg/dL Estimated Creat Clear 21.56 Estimated GFR 22 ml/min Glucose 146 H (60-115) mg/dL Lactate 1.3 (0.5-1.9) mmol/L Calcium 9.4 (8.4-10.6) mg/dL Magnesium 2.4 (1.5-2.6) mg/dL Total Bilirubin 0.5 (0.1-1.5) mg/dL AST 34 (12-35) U/L ALT 16 (4-50) U/L Alkaline Phosphatase 81 (40-150) U/L Troponin I < 0.01 L (0.01-0.04) ng/mL NT-Pro-B Natriuret Pep 755 H (0-450) PG/mL Total Protein 8.2 (6.0-8.3) g/dL Albumin 4.5 (3.3-5.0) g/dL Ethyl Alcohol < 0.01 L (0.01-0.03) % SARS-CoV-2 (PCR) (Negative) 06/16/22 Range/Units 14:25 WBC (4.50-11.00) K/uL RBC (4.30-5.90) m/uL Hgb (13.5-17.5) gm/dL Hct (37.0-53.0) % MCV (80-100) fL MCH (26-34) pg MCHC (32-36) gm/dL RDW Coeff of [place] (11.5-15.5) % Plt Count (140-440) K/uL Neut % (Auto) (42.0-72.0) % Lymph % (Auto) (20-44) % [place] % (Auto) (0.0-11.0) % Eos % (Auto) (0.0-7.0) % Baso % (Auto) (0.0-3.0) % Neut # (Auto) (1.7-7.0) K/uL Lymph # (Auto) (0.90-2.90) K/uL [place] # (Auto) (0.00-0.90) K/UL Eos # (Auto) (0.00-0.50) K/uL Baso # (Auto) (0.00-0.30) K/uL Abs Immat Gran (auto) (0.00-0.30) K/uL Sodium (135-149) mmol/L Potassium (3.6-5.1) mmol/L Chloride (96-114) mmol/L Carbon Dioxide (20-32) mmol/L BUN (7-30) mg/dL Creatinine (0.5-1.5) mg/dL Estimated Creat Clear Estimated GFR ml/min Glucose (60-115) mg/dL Lactate (0.5-1.9) mmol/L Calcium (8.4-10.6) mg/dL Magnesium (1.5-2.6) mg/dL Total Bilirubin (0.1-1.5) mg/dL AST (12-35) U/L ALT (4-50) U/L Alkaline Phosphatase (40-150) U/L Troponin I (0.01-0.04) ng/mL NT-Pro-B Natriuret Pep (0-450) PG/mL Total Protein (6.0-8.3) g/dL Albumin (3.3-5.0) g/dL Ethyl Alcohol (0.01-0.03) % SARS-CoV-2 (PCR) Negative SARS-CoV-2 (Negative) Imaging Data CT scan - head: Attestation: I have reviewed the pertinent imaging results. Radiologist's impression: Patient: [facility] Facility:?[facility] Patient ID:?[id number] Site Patient ID:?[id number] Site :?[id number] Study:?CT Head W/O-06/16/2022 2:41:47 PM Ordering Physician:Larry Ceja Final Report: Indication: Fall, hit head Technique: Volumetric multidetector CT images of the head were obtained without the administration of low osmolar intravenous contrast. Comparison: None available Findings: There is no intra-axial or extra-axial fluid collection. There is no mass effect or midline shift. There is age-related cortical atrophy with moderate sulcal widening and ex vacuo dilatation of the lateral ventricles. There are chronic small vessel disease changes in the subcortical and periventricular white matter without lost whipple-white differentiation. The orbits and their contents are grossly within normal limits. The bony calvarium is grossly intact. The paranasal sinuses are clear. The mastoid air cells are well aerated. Impression: Age-related and chronic small-vessel disease changes of the brain without acute intracranial abnormality. Please note that all CT scans at this facility use dose modulation, iterative reconstruction, and/or weight-based dosing when appropriate to reduce radiation dose to as low as reasonably achievable. Dictated by Petros Balbuena MD @ 06/16/2022 3:29:06 PM (Electronic Signature) Chest x-ray: Attestation: I have reviewed the pertinent imaging results. Radiologist's impression: Patient: [facility] Facility:?[facility] Patient ID:?[id number] Site Patient ID:?[id number]. Site :?[id number] Study:?XRay Chest 2 IMAGES-06/16/2022 2:49:49 PM Ordering Physician:Larry Ceja Final Report: INDICATION: Recent falls, CHF. TECHNIQUE: Chest 2 views. COMPARISON: Chest radiograph 06/02/2022. FINDINGS: There is an indistinct appearance of the costophrenic angles bilaterally which may be due to small effusions. Bibasilar atelectasis. No pneumothorax. Calcified granuloma right upper lung. Stable cardiomegaly. No significant pulmonary vascular congestion. Left chest pacemaker with leads in stable position. The bones are unremarkable. IMPRESSION: 1. Probable small bilateral pleural effusions and bibasilar atelectasis. 2. Stable cardiomegaly. Dictated by Jana Georges MD @ 06/16/2022 3:22:38 PM (Electronic Signature) ECG Data Attestation: I personally reviewed and interpreted this ECG as follows: (Sinus rhythm with first-degree AV block, 64 beats per minute, right bundle branch block, left anterior fascicular block. QT corrected 493 milliseconds.) Prior ECG tracings: not available for review Critical Care Time Critical Care Time Critical Care Time: No Discharge Plan Discharge Clinical Impression: Acute kidney injury, Falls, Acute hyponatremia Patient Disposition: Admitted As Inpatient Prescriptions: No Action albuterol sulfate [Ventolin HFA] 90 mcg/actuation HFA aerosol inhaler 2 puff INHALATION Q4H PRN amoxicillin 500 mg capsule 2,000 mg PO . DIREC PRN Label Comments: TAKE 4 CAPSULES 1/2 HOUR BEFORE DENTAL PROCEDURE Rx Instructions: PRIOR TO DENTAL APPTS levothyroxine 125 mcg tablet 125 mcg PO DAILY metoprolol tartrate 25 mg tablet 25 mg PO BID nifedipine 90 mg tablet extended release 90 mg PO DAILY omeprazole 20 mg capsule,delayed release(DR/EC) 20 mg PO BID pravastatin 20 mg tablet 20 mg PO HS sertraline 50 mg tablet 50 mg PO DAILY tramadol 50 mg tablet 50 mg PO BID Rx Instructions: TAKE ONE TABLET BY MOUTH IN THE MORNING AND ONE TABLET AT BEDTIME. MAY USE EXTRA 1/2 TABLET DAILY NEEDED aspirin [Adult Low Dose Aspirin] 81 mg tablet,delayed release (DR/EC) 81 mg PO MOTUWETHFRSA Rx Instructions: TAKES 6 DAYS PER WEEK CURRENTLY ascorbic acid (vitamin C) 500 mg tablet 250 mg PO DAILY clobetasol 0.05 % ointment 1 applic TOPICAL BID cetirizine [24Hour Allergy] 10 mg tablet 10 mg PO BID cholecalciferol (vitamin D3) 25 mcg (1,000 unit) tablet 25 mcg PO DAILY PRN Rx Instructions: TAKES IN WINTERTIME docusate sodium 50 mg capsule 50 mg PO DAILY potassium chloride 10 mEq Capsule, Extended Release 20 meq PO BIDWM Qty: 120 0RF sennosides-docusate sodium [Stool Softener-Laxative] 8.6-50 mg Tablet 1 tab PO BID PRNQty: 60 0RF furosemide 40 mg tablet 40 mg PO BID@09,16 Qty: 60 0RF Follow Up/Referrals: Lion Martini MD [Primary Care Provider] -
--- NOTE | 2022-06-16 14:16 | ED.NURSE ---
pt placed on heart monitor, ekg done. #20 sl placed L ac, blood drawn off iv start.
--- NOTE | 2022-06-16 14:19 | CRLHL7_ITS ---
For Patients: As a result of the Century Cures Act, medical imaging exams and procedure reports are released immediately into your electronic medical record. You may view this report before your referring provider. If you have questions, please contact your health care provider. Indication: Fall, hit head Technique: Volumetric multidetector CT images of the head were obtained without the administration of low osmolar intravenous contrast. Comparison: None available Findings: There is no intra-axial or extra-axial fluid collection. There is no mass effect or midline shift. There is age-related cortical atrophy with moderate sulcal widening and ex vacuo dilatation of the lateral ventricles. There are chronic small vessel disease changes in the subcortical and periventricular white matter without lost whipple-white differentiation. The orbits and their contents are grossly within normal limits. The bony calvarium is grossly intact. The paranasal sinuses are clear. The mastoid air cells are well aerated. Impression: Age-related and chronic small-vessel disease changes of the brain without acute intracranial abnormality. Please note that all CT scans at this facility use dose modulation, iterative reconstruction, and/or weight-based dosing when appropriate to reduce radiation dose to as low as reasonably achievable. Dictated by Petros Balbuena MD @ 06/16/2022 3:29:06 PM (Electronically Signed)
--- NOTE | 2022-06-16 14:19 | CRLHL7_ITS ---
For Patients: As a result of the Cures Act, medical imaging exams and procedure reports are released immediately into your electronic medical record. You may view this report before your referring provider. If you have questions, please contact your health care provider. INDICATION: Recent falls, CHF. TECHNIQUE: Chest 2 views. COMPARISON: Chest radiograph 06/02/2022. FINDINGS: There is an indistinct appearance of the costophrenic angles bilaterally which may be due to small effusions. Bibasilar atelectasis. No pneumothorax. Calcified granuloma right upper lung. Stable cardiomegaly. No significant pulmonary vascular congestion. Left chest pacemaker with leads in stable position. The bones are unremarkable. IMPRESSION: 1. Probable small bilateral pleural effusions and bibasilar atelectasis. 2. Stable cardiomegaly. Dictated by Jana Georges MD @ 06/16/2022 3:22:38 PM (Electronically Signed)
[2022-06-16 14:32] LABS: Basophils Absolute Auto 0.09 K/uL (0.00-0.30); Basophils Percent Auto 1.2 % (0.0-3.0); Eosinophils Absolute Auto 0.14 K/uL (0.00-0.50); Eosinophils Percent Auto 1.8 % (0.0-7.0); Hematocrit 33.6 % (37.0-53.0); Hemoglobin* 10.8 gm/dL (13.5-17.5); Immature Granulocytes Abs Auto 0.02 K/uL (0.00-0.30); Lymphocytes Percent Auto 16.2 % (20-44); Mean Corpuscular HGB Conc 32 gm/dL (32-36); Mean Corpuscular Hemoglobin 26 pg (26-34); Mean Corpuscular Volume 80 fL (80-100); Monocytes Percent Auto 14.1 % (0.0-11.0); Neutrophils Percent Auto 66.4 % (42.0-72.0); Platelet Count* 170 K/uL (140-440); Red Blood Count 4.21 m/uL (4.30-5.90); White Blood Count* 7.67 K/uL (4.50-11.00)
[2022-06-16 14:44] LABS: Lactate* 1.3 mmol/L (0.5-1.9)
[2022-06-16 14:46] LABS: Slide Review Reflex No
[2022-06-16 14:58] LABS: Albumin* 4.5 g/dL (3.3-5.0); Chloride* 88 mmol/L (96-114)
[2022-06-16 14:59] LABS: Potassium* 3.4 mmol/L (3.6-5.1); Sodium* 132 mmol/L (135-149)
[2022-06-16 15:01] LABS: Aspartate Amino Transferase* 34 U/L (12-35); Bilirubin Total* 0.5 mg/dL (0.1-1.5); Carbon Dioxide* 31 mmol/L (20-32); Creatinine* 2.7 mg/dL (0.5-1.5); Est. Creatinine Clearance* 21.56; Estimated Glomerular Filt Rate 22 ml/min
[2022-06-16 15:02] LABS: Alanine Aminotransferase* 16 U/L (4-50); Alkaline Phosphatase* 81 U/L (40-150); Blood Urea Nitrogen* 67 mg/dL (7-30); Calcium* 9.4 mg/dL (8.4-10.6); Glucose* 146 mg/dL (60-115); Magnesium* 2.4 mg/dL (1.5-2.6); Total Protein* 8.2 g/dL (6.0-8.3)
[2022-06-16 15:04] LABS: Ethanol* < 0.01 % (0.01-0.03)
[2022-06-16 15:11] LABS: NT Pro B Type NatriureticPept* 755 PG/mL (0-450)
[2022-06-16 15:15] LABS: Troponin I* < 0.01 ng/mL (0.01-0.04)
[2022-06-16 15:25] LABS: SARS PCR* Negative SARS-CoV-2 (Negative)
--- NOTE | 2022-06-16 16:38 | W.PC.EDHO ---
Primary Language: Upper Sorbian Preferred Language: Orientation Status: [] Alert & Oriented [] Slight Confusion [] Known Dx Dementia Transfers By: [] Assist of 1 [] Assist of 2 [] Lift Description of Symptoms ED Triage Present Problem pt falling more recently, fell this am at home in Description kitchen, has goose egg to R forehead. already had appt at [facility], went there and had ct of head. was going back to [facility] today for another appt when fell at clinic, hit back of head on plastic wheelchair spoke. has lump to back of head. also has bleeding and swelling to r elbow. pt on asa, no other blood thinners. wears 2 L O2 at home ED Triage Date of Onset of 06/16/22 Symptoms Female History Patient [place] Coma Scale [place] coma scale total score 15 [place] coma scale total score 15 Pain Pain Intensity [Generalized] 2 Pain Intensity [Generalized] 2 Pain Intensity 2 Oxygen Administration Pulse Oximetry 92 Oxygen Delivery Method Nasal Cannula Cardiac Monitoring EKG Method 12 Lead
--- NOTE | 2022-06-16 16:59 | PM.IMHP1 ---
Hospitalist- H&P: HPI History of Present Illness Time Seen by Provider: 15:30 Date Seen: 06/16/22 Chief complaint: Fall Narrative: Arsenio Demarco is a 86 year old man for to the emergency department by his primary care physician, Dr. Martini, orthostasis, hypotensive syncope, with 4 falls in the last 2 days consequence of the same. Patient presented to the clinic today to see his mine motor engineer in regard to recent hospitalization for acute on chronic diastolic heart failure. while still at home and getting ready to go to the clinic he had 1 of these episodes where he felt wobbly on his feet and suddenly he was on floor. Evidently he struck right frontal aspect of his forehead. Had no loss of consciousness. Did not think much of it because the day prior he had 2 other similar episodes. While at the clinic a decision was made by his primary care physician to get a CT scan of the head. Coming out of the CT scan he started to walk, again felt wobbly, fell and struck the back of his head. Had no loss of consciousness. Orthostatic blood pressures and pulses were not obtained then. His physician then referred him to the emergency department for further assessment. Review of Systems Status of ROS: Reports: 10 or more systems reviewed and unremarkable except as noted in History and below Narrative: Up until roughly 2 weeks ago he states he had been active, gardening. Started to notice increasing dyspnea, presented to the hospital emergency department was found to be in acute diastolic heart failure and was admitted at that time. Adjustments were made in his medication regimen including increasing diuresis and potassium supplementation. He has been following with his primary care physician since but adjustments have not been made in his diuretics up until today when he disease is mine motor engineer, his mine motor engineer recommended decreasing the dose of furosemide from 40 mg p.o. b.i.d. down to 40 mg p.o. once daily. Also he recommended reduction of the potassium supplementation from 20 mEq twice daily to 20 mg once daily. Denies any chest heaviness, pressure, tightness, or pain. Denies dyspnea at rest, paroxysmal nocturnal dyspnea, or orthopnea. No longer has dyspnea with exertion. Denies any edema. Denies nausea or vomiting. Acknowledges fair amount of weight loss. He is unable to gas how much. I review his medical records here and note that on 02 June his weight was 102 kg. By 04 June his weight was 97 kg. Today his weight is 93 kg. Thus he has lost 9 kg since 06/02/2022. His episodes of orthostasis and falls have increased during this interim of time. Patient had a pacemaker interrogation today. This demonstrated atrial paced rhythm at 67% of the time and ventricular paced rhythm at 1% of the time. There are no ventricular high rates. There was appropriate heart rate distribution. No evidence of dysrhythmia noted. His biggest concern has been pruritus this whole time. He indicates this started 3-4 weeks ago. Has seen his primary care physician and installation superintendent in regard to the same. Has been prescribed triamcinolone 0.1% cream as well as betamethasone cream for this. He indicates he is not getting much relief from the use of these medicines. It is not clear that he is actually using these routinely or appropriately. He states he has gets as much benefit from his simply washing his back with soap and water. States the pruritus is on his back and arms. His notes that he has more bruising as well in these same areas. Does not describe pruritus after shower. In fact notes that pruritus is better after washing up. Lesions on his back are resolving. Still has some lesions on his arms that are not resolving. States bowel and bladder function have been satisfactory. Has not had any focal motor neurologic deficits. Denies polyuria, polydipsia, polyphagia. Denies heat or cold intolerance. No recent travel. Denies blood loss of any sort. No recent febrile illnesses. Denies fever, rigors, diaphoresis. Denies dysuria, urgency, frequency, hematuria. Denies constipation or diarrhea. Denies heartburn, dyspepsia, dysphagia, odynophagia. Has chronic sense of stiffness and aching of his neck. [facility] Medical History Acute respiratory failure, unspecified whether with hypoxia or hypercapnia Anemia Cardiac conduction disorder Carotid sinus hypersensitivity Chronic anxiety Chronic kidney disease (CKD) Chronic neck pain Coronary artery disease Dermatitis Dyspnea on exertion Gastroesophageal reflux disease Heart failure Hyperlipidemia Hypertension Hypoxia Iron deficiency anemia Orthopnea Pacemaker PND (paroxysmal nocturnal dyspnea) Pulmonary hypertension Right bundle branch block (RBBB) with left anterior fascicular block Syncope and collapse Surgical History H/O arthroscopy of shoulder History of hip replacement History of permanent cardiac pacemaker placement Status post excisional biopsy Social History Narrative: to [employer]. 60+ years. Retired from ?everything? Adult children. Lives independently. Loves to garden. Quit smoking in the early . Highest level of school completed/degree received: high school graduate Smoking Status: Former smoker Do you use any of these nicotine containing products: None How often do you have a drink containing alcohol: never AUDIT-C Alcohol total score: 0 Non-prescribed substance use: denies use service: Yes Meds Home Medications and Allergies Home Medications Medication Instructions Recorded Confirmed Type albuterol sulfate 90 mcg/actuation 2 puff inhalation Q4H PRN 06/02/22 06/16/22 History aerosol inhaler (Ventolin HFA) amoxicillin 500 mg capsule 2,000 mg PO . DIREC PRN 06/02/22 06/16/22 History ascorbic acid (vitamin C) 500 mg 500 mg PO Q48H 06/02/22 06/16/22 History tablet aspirin 81 mg tablet,delayed 81 mg PO MOTUWETHFRSA 06/02/22 06/16/22 History release (Adult Low Dose Aspirin) cetirizine 10 mg tablet (24Hour 10 mg PO DAILY 06/02/22 06/16/22 History Allergy) cholecalciferol (vitamin D3) 25 25 mcg PO DAILY PRN 06/02/22 06/16/22 History mcg (1,000 unit) tablet clobetasol 0.05 % topical ointment 1 applic topical BID PRN 06/02/22 06/16/22 History docusate sodium 50 mg capsule 50 mg PO BID 06/02/22 06/16/22 History levothyroxine 125 mcg tablet 125 mcg PO DAILY 06/02/22 06/16/22 History metoprolol tartrate 25 mg tablet 25 mg PO BID 06/02/22 06/16/22 History nifedipine 90 mg tablet,extended 90 mg PO DAILY 06/02/22 06/16/22 History release omeprazole 20 mg capsule,delayed 20 mg PO BID 06/02/22 06/16/22 History release pravastatin 20 mg tablet 20 mg PO HS 06/02/22 06/16/22 History sertraline 50 mg tablet 50 mg PO DAILY 06/02/22 06/16/22 History tramadol 50 mg tablet 50 mg PO BID 06/02/22 06/16/22 History furosemide 40 mg tablet 40 mg PO DAILY 06/16/22 06/16/22 History polyethylene glycol 3350 17 17 g PO DAILY PRN 06/16/22 06/16/22 History gram/dose oral powder (Miralax) potassium chloride 10 mEq 20 meq PO DAILY 06/16/22 06/16/22 History capsule,extended release Allergies Allergy/AdvReac Type Severity Reaction Status Date / Time cefaclor [From [facility]] Allergy Hives Verified 06/02/22 16:56 doxazosin Allergy Verified 06/02/22 16:56 codeine AdvReac Verified 06/02/22 16:56 erythromycin base AdvReac Nausea Verified 06/02/22 16:56 lisinopril Allergy Uncoded 06/02/22 16:56 trazodone Allergy Anxiety Uncoded 06/02/22 16:56 Exam Narrative: Exam Narrative: No acute distress. Appears comfortable. Alert and oriented to self, place, time, situation. Friendly, cooperative. Sometimes allows his to speak on his own behalf. Seems anxious particularly about his itching. Mood and affect are congruent. Hearing is mildly impaired. Vision is grossly normal. Midline nasal septum normal nasal mucosa. Dentition in fair repair. Neck is supple. Midline trachea. Normal thyroid. No JVD, hepatojugular reflux, or carotid bruits. No lymphadenopathy. Lungs clear to auscultation without wheezing, rhonchi, or rales. No CVA tenderness. Heart tones with regular rhythm, normal S1-S2, without murmur, gallop, or rub. PMI not displaced. Abdomen with active lungs, soft, nontender. Extremities without edema. Capillary refill upper extremities less than 3 seconds. Independent transfer and station. No obvious focal motor neurologic deficits. Resolving examined this type rash on his back. Still has eczematous type rash on forearms. Skin is generally dry. Const: Vital Signs, click to edit/add: Vital Signs - 24 hr 06/16/22 13:46 Temperature 97.3 F L Pulse Rate [Pulse Oximeter] 70 Respiratory Rate 18 Blood Pressure [Le ft Upper Arm] 158/63 H Pulse Oximetry 92 Oxygen Delivery Me thod Nasal Cannula Documenting provider has reviewed patient's vital signs: yes Hospitalist - H&P: Result Labs Labs: Short CBC 06/16/22 Range/Units 14:12 WBC 7.67 (4.50-11.00) K/uL Hgb 10.8 L (13.5-17.5) gm/dL Hct 33.6 L (37.0-53.0) % Plt Count 170 (140-440) K/uL BMP 06/16/22 14:12 Sodium 132 L Potassium 3.4 L Chloride 88 L Carbon Dioxide 31 BUN 67 H Creatinine 2.7 H Glucose 146 H Calcium 9.4 Cardiac Enzymes 06/16/22 Range/Units 14:12 Troponin I < 0.01 L (0.01-0.04) ng/mL Liver Function 06/16/22 Range/Units 14:12 Total Bilirubin 0.5 (0.1-1.5) mg/dL AST 34 (12-35) U/L ALT 16 (4-50) U/L Alkaline Phosphatase 81 (40-150) U/L Albumin 4.5 (3.3-5.0) g/dL Imaging Chest x-ray: Attestation: I have reviewed the pertinent imaging results. Radiologist's impression: Mild cardiomegaly. Possible bilateral small pleural effusions with atelectasis bibasilarly. Unchanged from previously. CT scan - head: Attestation: I have reviewed the pertinent imaging results. Radiologist's impression: Age-related chronic small-vessel disease of brain noted. No acute changes. Assessment and Plan Assessment and plan (1) Falls: Status: Acute (2) Contusion of forehead: Status: Acute (3) Orthostasis: Status: Acute (4) Dehydration: Problem comment: likely from over-diuresis Status: Acute (5) Hypotensive syncope: Problem comment: likely from over-diuresis Status: Acute (6) Acute kidney injury: Status: Acute (7) Heart failure with preserved ejection fraction: Problem comment: Echocardiogram on preliminary report is unremarkable except for pulmonary hypertension with a right ventricular pressure of 40 mmHg plus right atrial pressure Status: Acute (8) Acute hyponatremia: Status: Acute (9) Pruritus: Problem comment: Etiology not yet determined. Status: Acute Assessment and Plan: Differential diagnosis includes eczematous dermatitis, drug reaction, endocrine associated pruritus, malignancy associated pruritus ( such as, mycosis fungoides, Sezary syndrome, folliculotropic mycosis fungoides, Hodgkin's lymphoma ), etc. (10) Iron deficiency anemia: Problem comment: Cause unknown. No evidence of bleeding. Hemoglobin is stable. Outpatient evaluation warranted. Status: Acute (11) Chronic kidney disease (CKD): Problem comment: Stable. Follow with diuresis. Outpatient followup of electrolytes and renal function Status: Acute (12) Chronic anxiety: Problem comment: Continue Zoloft Status: Acute (13) Hypertension: Problem comment: Continue metoprolol, nifedipine Status: Acute (14) Pacemaker: Status: Acute Plan 1. Reviewed my impression with the patient and his . 2. Explained to them our focus on addressing his falls and hypotensive syncope. 3. IV fluid rehydration. 4. Decrease furosemide diuresis from 40 b.i.d. to 40 daily. 5. Monitor orthostatic blood pressures and pulses. Also monitor weight daily. 6. Continue with his skin cares. 7. Continue with his mood stabilizing medication regimen. 8. Answered his and his 's questions to their satisfaction. They are agreeable with above stated plans and recommendations. 9. Will certainly need ongoing assessments and interventions with his primary care physician in the outpatient setting hereafter.
[2022-06-16 18:33] LABS: Thyroid Stimulating Hormone* 0.737 uIU/mL (0.270-4.20)
[2022-06-16] MEDS: 0.9 % SODIUM CHLORIDE 500 ML 500 ML IV (18:49)
[2022-06-16] MEDS: METOPROLOL TARTRATE 25 MG TABLET PO (20:54)
[2022-06-16] MEDS: PRAVASTATIN SODIUM 20 MG TABLET PO (20:54)
[2022-06-16] MEDS: ACETAMINOPHEN 325 MG TABLET 650 MG PO (20:54)
[2022-06-16] MEDS: OMEPRAZOLE 20 MG CAPSULE DR PO (20:55)
[2022-06-16] MEDS: DOCUSATE SODIUM 100 MG CAPSULE PO (20:55)
[2022-06-16] MEDS: TRAMADOL HCL 50 MG TABLET 25 MG PO (20:55)
[2022-06-17] VITALS (9 sets, daily range): BP systolic 124–169; BP diastolic 61–80; PULSE 66–83; RESP 18–20; TEMP 36.5–36.7; O2SAT 91–99
--- NOTE | 2022-06-17 00:13 | PC.NURSE ---
Patient up to the BR with SBA, walker and gait belt. When patient was getting into the BR. He had an episode where he felt faint and needed to sit. After sitting for a couple minutes, patient was able to return to the chair safely with assist of 2, walker and gait belt.
[2022-06-17] MEDS: LEVOTHYROXINE 125 MCG TABLET PO (06:38)
[2022-06-17 07:01] LABS: Hematocrit 32.6 % (37.0-53.0); Hemoglobin* 10.5 gm/dL (13.5-17.5); Mean Corpuscular HGB Conc 32 gm/dL (32-36); Mean Corpuscular Hemoglobin 26 pg (26-34); Mean Corpuscular Volume 80 fL (80-100); Platelet Count* 170 K/uL (140-440); White Blood Count* 9.19 K/uL (4.50-11.00)
[2022-06-17 07:12] LABS: Slide Review Reflex No
[2022-06-17 07:22] LABS: Albumin* 4.4 g/dL (3.3-5.0); Chloride* 88 mmol/L (96-114); Potassium* 3.4 mmol/L (3.6-5.1); Sodium* 133 mmol/L (135-149)
[2022-06-17 07:25] LABS: Blood Urea Nitrogen* 58 mg/dL (7-30); Carbon Dioxide* 34 mmol/L (20-32); D Dimer Quantitative* 1.15 ug/ml (0.00-0.50); Estimated Glomerular Filt Rate 32 ml/min; Glucose* 122 mg/dL (60-115)
[2022-06-17 07:26] LABS: Calcium* 9.5 mg/dL (8.4-10.6); Magnesium* 2.5 mg/dL (1.5-2.6); Phosphorus* 4.6 mg/dL (2.5-4.5)
[2022-06-17 07:28] LABS: C Reactive Protein* 1.4 mg/dL (0.5-1.0)
[2022-06-17 07:31] LABS: NT Pro B Type NatriureticPept* 558 PG/mL (0-450)
--- NOTE | 2022-06-17 07:36 | PC.NURSE ---
END OF SHIFT NOTE: PT PLEASANT AND COOPERATIVE. TELE READS NSR PACED WITH 1ST DEGREE HB AND BBB. PT HAD SYNCOPAL EPISODE AFTER AMBULATING TO BATHROOM TO VOID. PT WAS ADVISED TO REPORT SYMPTOMS OF FEELING FAINT. PT STATED FEELING FINE; PT THEN HAD SYNCOPAL EPISODE AND WAS LOWERED TO THE FLOOR. PT WAS TRANSFERRED BACK TO BED VIA W/C. NO INJURIES SUSTAINED WHEN LOWERED TO FLOOR. PT UTILIZED URINAL AND BSC REST OF SHIFT.
[2022-06-17] MEDS: NIFEdipine 30 MG TAB.ER.24 PO (09:28)
[2022-06-17] MEDS: CETIRIZINE HCL 10 MG TABLET PO (09:28)
[2022-06-17] MEDS: DOCUSATE SODIUM 100 MG CAPSULE PO ×2 (09:29→20:29)
[2022-06-17] MEDS: ACETAMINOPHEN 325 MG TABLET 650 MG PO ×2 (09:29→20:29)
[2022-06-17] MEDS: SERTRALINE 50 MG TABLET PO (09:29)
[2022-06-17] MEDS: OMEPRAZOLE 20 MG CAPSULE DR PO ×2 (09:29→20:29)
[2022-06-17] MEDS: ASPIRIN 81 MG TABLET EC PO (09:29)
[2022-06-17] MEDS: METOPROLOL TARTRATE 25 MG TABLET PO ×2 (09:29→20:29)
[2022-06-17] MEDS: POTASSIUM CHLORIDE 10 MEQ CAPSULE ER 20 MEQ PO (09:56)
--- NOTE | 2022-06-17 10:11 | CRLHL7_ITS ---
For Patients: As a result of the 21st Century Cures Act, medical imaging exams and procedure reports are released immediately into your electronic medical record. You may view this report before your referring provider. If you have questions, please contact your health care provider. INDICATION: Anemia, rash and acute kidney injury COMPARISON: None TECHNIQUE: CT examination of the chest, and pelvis was performed without intravenous contrast. Thin section axial images were obtained from the thoracic inlet through the pubic symphysis. Oral contrast was not administered. Sagittal and coronal reformatted imaging was performed. Please note that all CT scans at this facility use dose modulation, iterative reconstruction, and/or weight-based dosing when appropriate to reduce radiation dose to as low as reasonably achievable. FINDINGS: CHEST: The heart is mildly enlarged. A pacer is noted. There are atherosclerotic vascular calcifications. There is significant mediastinal lymphadenopathy. This is primarily superior mediastinal and pretracheal and is clearly abnormal. Based on its size, it is unlikely to be a simple reactive process and likely represents a malignancy or lymphoproliferative process. Follow-up evaluation is recommended. No pericardial effusion. The lungs show a mixed pattern of emphysema and minimal interstitial fibrosis. Focal scarring or atelectasis at the bases. A few scattered nodules are noted. Some of these are calcified. The largest status noncalcified is in the left upper lobe on image 17 measuring 7 millimeters. No pleural effusion or pneumothorax. Isolated pleural calcifications on the right. ABDOMEN AND PELVIS: LIVER/BILIARY SYSTEM:The liver is normal in size and configuration given the lack of intravenous contrast. There is no visible focal mass and there is no intra- or extra hepatic biliary ductal dilatation.The gall bladder appears normal. ADRENALS: Normal non-contrast appearance KIDNEYS, URETERS and BLADDER:The kidneys are normal in size. There is a right renal cyst measuring 3.8 centimeters. No calcified calculus. The ureters are not dilated. The bladder is mildly distended but otherwise unremarkable. Streak artifact obscures a portion of the bladder SPLEEN:Benign calcifications PANCREAS: Suggestive a pancreatic tail mass. This is best seen on axial image 107, coronal image 51 and sagittal image 33. This measures about 2.2 centimeters in greatest dimension. RETROPERITONEUM and MESENTERY: Atherosclerotic vascular calcifications without janey aneurysm. No retroperitoneal or other abdominal or pelvic lymphadenopathy. GASTROINTESTINAL SYSTEM: There is no evidence of diverticulitis, colitis, mechanical obstruction, or appendicitis. The small bowel as visualized appears normal.Fecal retention. Diverticulosis. Moderate-sized hiatal hernia with evidence of reflux PELVIS: Limited visualization due to streak artifact from a right hip arthroplasty.. OSSEOUS STRUCTURES and ABDOMINAL WALL: Demineralization and degenerative change. No evidence for acute fracture, dislocation or destructive process. No significant abdominal wall defect. OTHER: No free fluid or free air. IMPRESSION: 1. CHEST: Mediastinal lymphadenopathy. This is above that generally seen as a simple benign or reactive process. I suspect this is malignant. The lungs show a mixed emphysema pattern with mild fibrosis. A few scattered small nodules are identified the largest of which measures 7 millimeters. No pleural effusion 3. OSSEOUS STRUCTURES: No destructive process of bone 4. Consider a PET-CT for further evaluation of the mediastinal and pancreatic findings. At least 1 of the lung nodules is likely large enough to likely be evaluable by PET Please note that all CT scans at this facility use dose modulation, iterative reconstruction, and/or weight-based dosing when appropriate to reduce radiation dose to as low as reasonably achievable. Dictated by Jhon Castro MD @ 06/17/2022 12:01:17 PM (Electronically Signed)
--- NOTE | 2022-06-17 13:34 | PM.IMPN1 ---
Progress Note: A&P Assessment and plan (1) Hypotensive syncope: Status: Acute Assessment and Plan: Patient + for orthostasis. His nifedipine dose has been decreased, his metoprolol dose has remained unchanged, Lasix dose has been cut in half (40 mg p.o. daily--> 20 mg p.o. daily). We will also hold his tramadol (uses prn for arthritis pain), as I think it may be contributing to orthostasis. CT scan of head on admission was negative. (2) Pruritus: Status: Acute Assessment and Plan: CT of chest abdomen and pelvis obtained today; exhibits a lesion in the tail of the pancreas and a lesion in his lung. PET scan recommended Discussed with patient and , they would prefer to work these lesions up. PET scan ordered. He is on an H1 rob, will add Pepcid today. He is not finding much relief from steroid creams. If symptoms are persistent, consider treatment with permethrin for possible scabies source (although malignancy more likely, see above). (3) Acute kidney injury: Status: Acute Assessment and Plan: Improving, continue to follow. We have cut his Lasix dose in half given orthostasis (4) Heart failure with preserved ejection fraction: Problem details: Echocardiogram on preliminary report is unremarkable except for pulmonary hypertension with a right ventricular pressure of 40 mmHg plus right atrial pressure Status: Acute (5) Acute hyponatremia: Status: Acute Assessment and Plan: Continue to function. (6) Iron deficiency anemia: Problem details: Cause unknown. No evidence of bleeding. Hemoglobin is stable. Outpatient evaluation warranted. Status: Acute Assessment and Plan: Potentially related to findings on CT scan, continue to follow hemoglobin (7) Chronic kidney disease (CKD): Problem details: Stable. Follow with diuresis. Status: Acute (8) Hypertension: Status: Acute Assessment and Plan: Age-appropriate control on decreased dose of nifedipine, home dose of metoprolol. We will continue to follow his blood pressure given decreased dose of Lasix. Consider adding midodrine if we are unable to control patient's orthostasis with the above mentioned medication changes. (9) Chronic anxiety: Problem details: Continue Zoloft Status: Acute (10) Pacemaker: Status: Acute Assessment and Plan: Quiescent, reassuring pacemaker check on admission. Plan - per above - continue to monitor Orthostatic symptoms, continue PT/OT - hopes to discharge home with with close PCP and outpatient Cardiology f/u when medically stable Subjective Date Seen: 06/17/22 Interval history: Patient had another episode of falling/syncope overnight. He had + orthostasis with a systolic blood pressure drop of greater than 50 points from seated to standing yesterday (185-->129). This morning, he had less orthostasis noted during physical therapy, but still had a drop in systolic blood pressure by 20+ points. Patient continues to complain of pruritis. He has no headache. He has no chest pain or dyspnea. He continues to feel somewhat weak. Exam Narrative: Exam Narrative: GEN: Alert HEENT: Normal external ears, EOMIs bilaterally, no scleral icterus CV: RRR, systolic murmur without concerning findings R: LCTA bilaterally without concerning wheezing, rales, or rhonchi. Air movement adequate Ext: wwp, no concerning edema Skin: Punctate erythematous lesions throughout back, no excoriations. Similar lesions on extremities Neuro: Nonfocal, gait not observed, no resting tremor Psych: Appropriate Const: Vital Signs, click to edit/add: Vital Signs - 24 hr 06/16/22 13:46 06/16/22 14:00 06/16/22 15:00 Temperature 97.3 F L Pulse Rate [Pulse Oximeter] 70 68 68 Pulse Rate [orthos tatic lying] Pulse Rate [orthos tatic sitting Puls e Oximeter] Pulse Rate [orthos tatic standing Pul se Oximeter] Respiratory Rate 18 18 18 Blood Pressure [Le ft Upper Arm] 158/63 H 153/60 H 146/63 H Blood Pressure [Ri ght Arm] Blood Pressure [or thostatic lying Ri ght Arm] Blood Pressure [or thostatic sitting] Blood Pressure [or thostatic standing ] Pulse Oximetry 92 96 98 Oxygen Delivery Me thod Nasal Cannula Room Air Room Air Oxygen Flow Rate 06/16/22 16:00 06/16/22 18:29 06/16/22 19:00 Temperature 98.3 F Pulse Rate [Pulse Oximeter] 67 Pulse Rate [orthos tatic lying] 71 Pulse Rate [orthos tatic sitting Puls e Oximeter] 75 Pulse Rate [orthos tatic standing Pul se Oximeter] 74 Respiratory Rate 18 18 Blood Pressure [Le ft Upper Arm] 162/68 H Blood Pressure [Ri ght Arm] 150/68 H Blood Pressure [or thostatic lying Ri ght Arm] 170/62 H Blood Pressure [or thostatic sitting] 180/66 H Blood Pressure [or thostatic standing ] 137/68 Pulse Oximetry 99 99 Oxygen Delivery Me thod Room Air Nasal Cannula Oxygen Flow Rate 2 06/16/22 23:52 06/17/22 00:01 06/16/22 21:00 Temperature 98.3 F Pulse Rate [Pulse Oximeter] Pulse Rate [orthos tatic lying] 75 Pulse Rate [orthos tatic sitting Puls e Oximeter] 76 Pulse Rate [orthos tatic standing Pul se Oximeter] 84 Respiratory Rate 18 18 Blood Pressure [Le ft Upper Arm] Blood Pressure [Ri ght Arm] 150/68 H Blood Pressure [or thostatic lying Ri ght Arm] 186/53 H Blood Pressure [or thostatic sitting] 185/69 H Blood Pressure [or thostatic standing ] 129/63 Pulse Oximetry 99 99 Oxygen Delivery Me thod Nasal Cannula Nasal Cannula Oxygen Flow Rate 2 2 06/17/22 01:00 06/17/22 01:00 06/17/22 03:00 Temperature 97.8 F Pulse Rate [Pulse Oximeter] 81 75 Pulse Rate [orthos tatic lying] Pulse Rate [orthos tatic sitting Puls e Oximeter] Pulse Rate [orthos tatic standing Pul se Oximeter] Respiratory Rate 18 18 18 Blood Pressure [Le ft Upper Arm] Blood Pressure [Ri ght Arm] 169/69 H 126/73 Blood Pressure [or thostatic lying Ri ght Arm] Blood Pressure [or thostatic sitting] Blood Pressure [or thostatic standing ] Pulse Oximetry 93 95 Oxygen Delivery Me thod Nasal Cannula Nasal Cannula Oxygen Flow Rate 1 1 Labs Labs: Laboratory Results - last 24 hr 06/16/22 06/16/22 06/16/22 14:12 14:12 14:12 WBC 7.67 RBC 4.21 L Hgb 10.8 L Hct 33.6 L MCV 80 MCH 26 MCHC 32 RDW Coeff of Torrey 15.0 Plt Count 170 Neut % (Auto) 66.4 Lymph % (Auto) 16.2 L [place] % (Auto) 14.1 H Eos % (Auto) 1.8 Baso % (Auto) 1.2 Neut # (Auto) 5.10 Lymph # (Auto) 1.20 [place] # (Auto) 1.10 H Eos # (Auto) 0.14 Baso # (Auto) 0.09 Abs Immat Gran (auto) 0.02 D-Dimer Quant (PE/DVT) Sodium 132 L Potassium 3.4 L Chloride 88 L Carbon Dioxide 31 BUN 67 H Creatinine 2.7 H Estimated Creat Clear 21.56 Estimated GFR 22 Glucose 146 H Lactate 1.3 Calcium 9.4 Phosphorus Magnesium 2.4 Total Bilirubin 0.5 AST 34 ALT 16 Alkaline Phosphatase 81 Troponin I < 0.01 L C-Reactive Protein NT-Pro-B Natriuret Pep 755 H Total Protein 8.2 Albumin 4.5 TSH Ethyl Alcohol < 0.01 L SARS-CoV-2 (PCR) 06/16/22 06/16/22 06/17/22 14:12 14:25 06:37 WBC 9.19 RBC 4.10 L Hgb 10.5 L Hct 32.6 L MCV 80 MCH 26 MCHC 32 RDW Coeff of Torrey Plt Count 170 Neut % (Auto) Lymph % (Auto) [place] % (Auto) Eos % (Auto) Baso % (Auto) Neut # (Auto) Lymph # (Auto) [place] # (Auto) Eos # (Auto) Baso # (Auto) Abs Immat Gran (auto) D-Dimer Quant (PE/DVT) Sodium Potassium Chloride Carbon Dioxide BUN Creatinine Estimated Creat Clear Estimated GFR Glucose Lactate Calcium Phosphorus Magnesium Total Bilirubin AST ALT Alkaline Phosphatase Troponin I C-Reactive Protein NT-Pro-B Natriuret Pep Total Protein Albumin TSH 0.737 Ethyl Alcohol SARS-CoV-2 (PCR) Negative SARS-CoV-2 06/17/22 06/17/22 06/17/22 06:37 06:37 06:37 WBC RBC Hgb Hct MCV MCH MCHC RDW Coeff of Torrey Plt Count Neut % (Auto) Lymph % (Auto) [place] % (Auto) Eos % (Auto) Baso % (Auto) Neut # (Auto) Lymph # (Auto) [place] # (Auto) Eos # (Auto) Baso # (Auto) Abs Immat Gran (auto) D-Dimer Quant (PE/DVT) 1.15 H Sodium 133 L Potassium 3.4 L Chloride 88 L Carbon Dioxide 34 H BUN 58 H Creatinine 2.0 H Estimated Creat Clear 29.10 Estimated GFR 32 Glucose 122 H Lactate 1.0 Calcium 9.5 Phosphorus 4.6 H Magnesium 2.5 Total Bilirubin AST ALT Alkaline Phosphatase Troponin I C-Reactive Protein 1.4 H NT-Pro-B Natriuret Pep 558 H Total Protein Albumin 4.4 TSH Ethyl Alcohol SARS-CoV-2 (PCR)
--- NOTE | 2022-06-17 15:47 | PC.NURSE ---
Tamera by Dr. Isabel. Pt had a CT scan of abdomen, pelvis and chest completed this morning. Family updated on plan for PET scan d/to small spot on right lung and pancreas. Pt has scab wounds across bilateral upper extremities chronic itching per dtr's report. Pt uses oxygen at home 1L/on at initial assessment. Sats maintained on room air. Pt did not have any syncopal episodes on day shift. Report to Juju Aragon RN for evening shift.
[2022-06-17 15:57] LABS: Albumin* 4.4 g/dL (3.3-5.0)
[2022-06-17 16:00] LABS: Alanine Aminotransferase* 16 U/L (4-50); Alkaline Phosphatase* 86 U/L (40-150); Aspartate Amino Transferase* 39 U/L (12-35); Bilirubin Direct* 0.3 mg/dL (0.0-0.5); Bilirubin Total* 0.6 mg/dL (0.1-1.5); Total Protein* 8.2 g/dL (6.0-8.3)
--- NOTE | 2022-06-17 16:10 | PC.NURSE ---
Telemetry indicated atrial pacer, 1st degree HB and BBB on day shift. Discontinued at 11:15 am per verbal order from Dr. Antoinette Isabel.
[2022-06-17] MEDS: FAMOTIDINE 20 MG TABLET PO (20:30)
[2022-06-17] MEDS: PRAVASTATIN SODIUM 20 MG TABLET PO (20:30)
--- NOTE | 2022-06-17 22:42 | PC.NURSE ---
Had wheel chair behind him incase he felt faint
[2022-06-17] MEDS: MELATONIN 3 MG TABLET PO (23:21)
[2022-06-18 02:41] VITALS: BP 156/58; PULSE 64; RESP 18; TEMP 36.9; O2SAT 94
--- NOTE | 2022-06-18 05:09 | PC.NURSE ---
[id number] Pt restless at beginning of shift, however, able to fall asleep soon after prn med. required 2 lpm O2 to maintain sats <90%, pt 80% on RA while sleeping. denies pain, able to stand up at bedside to urinate, did acknowledge feeling dizzy x1 during that times. no syncopal episodes this shift.
[2022-06-18] MEDS: LEVOTHYROXINE 125 MCG TABLET PO (06:44)
[2022-06-18 07:00] VITALS: BP 148/42; PULSE 62; RESP 18; TEMP 36.7; O2SAT 94
[2022-06-18 07:09] LABS: Basophils Absolute Auto 0.07 K/uL (0.00-0.30); Basophils Percent Auto 0.9 % (0.0-3.0); Eosinophils Absolute Auto 0.05 K/uL (0.00-0.50); Eosinophils Percent Auto 0.6 % (0.0-7.0); Hematocrit 32.3 % (37.0-53.0); Hemoglobin* 10.3 gm/dL (13.5-17.5); Immature Granulocytes Abs Auto 0.01 K/uL (0.00-0.30); Lymphocytes Percent Auto 10.8 % (20-44); Mean Corpuscular HGB Conc 32 gm/dL (32-36); Mean Corpuscular Hemoglobin 26 pg (26-34); Mean Corpuscular Volume 81 fL (80-100); Monocytes Percent Auto 14.5 % (0.0-11.0); Neutrophils Percent Auto 73.1 % (42.0-72.0); Platelet Count* 158 K/uL (140-440); RDW Coefficient of Variation % 15.2 % (11.5-15.5); White Blood Count* 8.22 K/uL (4.50-11.00)
[2022-06-18 07:13] LABS: Slide Review Reflex No
[2022-06-18 07:25] LABS: Chloride* 92 mmol/L (96-114); Potassium* 3.2 mmol/L (3.6-5.1); Sodium* 134 mmol/L (135-149)
[2022-06-18 07:28] LABS: Blood Urea Nitrogen* 50 mg/dL (7-30); Calcium* 9.5 mg/dL (8.4-10.6); Carbon Dioxide* 33 mmol/L (20-32); Creatinine* 1.8 mg/dL (0.5-1.5); Est. Creatinine Clearance* 32.33; Estimated Glomerular Filt Rate 36 ml/min; Glucose* 137 mg/dL (60-115)
[2022-06-18] MEDS: ACETAMINOPHEN 325 MG TABLET 650 MG PO ×2 (09:53→20:06)
[2022-06-18] MEDS: FUROSEMIDE 20 MG TABLET PO (09:54)
[2022-06-18] MEDS: NIFEdipine 30 MG TAB.ER.24 PO (09:54)
[2022-06-18] MEDS: SERTRALINE 50 MG TABLET PO (09:55)
[2022-06-18] MEDS: CETIRIZINE HCL 10 MG TABLET PO (09:55)
[2022-06-18] MEDS: FAMOTIDINE 20 MG TABLET PO ×2 (09:55→20:05)
--- NOTE | 2022-06-18 09:55 | PM.IMPN1 ---
Progress Note: A&P Assessment and plan (1) Hypotensive syncope: Problem details: Medication changes: 1. Decreased nifedipine from 90 mg --> 30 mg 2. DKA recent metoprolol dosing from 25 mg BID --> 12.5 mg BID 3. Lasix decreased from 40 mg daily --> 20 mg daily 4. Addition of midodrine on 06/18 Status: Acute Assessment and Plan: Patient's symptoms have persisted after medication changes, so we will add midodrine today. Given change in status this morning, neurology was consulted by phone. I talked with Dr. Lockett of [facility] Neurology, who agreed that these episodes represent pre-syncope/syncope of orthostatic hypotension and did not feel that any additional Neurological studies/intervention warranted. (2) Pruritus: Status: Acute Assessment and Plan: Source unclear - may be 2/2 malignant process (pancreatic and lung mass). Improving with H1 and H2 blockade. Permethrin cream available if rash were to persist/worsen. (3) Heart failure with preserved ejection fraction: Problem details: Echocardiogram from 05/2022: Pulmonary HTN with a right ventricular pressure of 40 mmHg plus right atrial pressure Status: Acute (4) Acute hyponatremia: Status: Acute Assessment and Plan: Mild, stable - likely related to CHF, although also has a lung mass that is concerning for malignancy. (5) Iron deficiency anemia: Status: Acute Assessment and Plan: Stable, follow-up as an outpatient. (6) Hypertension: Status: Acute Assessment and Plan: see #1 (7) Chronic anxiety: Problem details: Continue Zoloft Status: Acute (8) Pacemaker: Problem details: Interrogated 06/16/2022 Status: Acute Assessment and Plan: Quiescent, reassuring interrogation on 06/16/2022 (9) Acute kidney injury superimposed on CKD: Status: Acute Assessment and Plan: Stable with mild improvement today, continue to follow. (10) Pancreatic mass: Problem details: Noted on CT scan 06/17/2022, also has 7mm lung mass. PET scan recommended Status: Acute Assessment and Plan: Patient and family would like workup, PET scan has been ordered to be completed upon discharge. Plan - per above - d/c melatonin given significant am symptoms - accept elevated BPs given severely symptomatic orthostasis - renally dosed Lovenox for ppx - Hope and son updated at bedside, questions answered - plan is to discharge home with spouse when 24 hours syncope-free, will need close outpatient f/u Time Spent With Patient Total time spent: 60, >75% in counseling, family updates, imaging, coordination of care Subjective Date Seen: 06/18/22 Interval history: Baltazar slept well last night after melatonin. This morning he had 3 episodes of orthostatic hypotension with presyncope, all witnessed by nursing staff. Was slow to improve after 3rd episode ( present and noted this as well), ABG and urgent head CT obtained. ABG reassuring with pH 7.461, CO2 of 48.5, O2 85. CT of head without acute findings. Pruritus persists but seems improved with H1/H2 rob. Exam Narrative: Exam Narrative: GEN: Answering questions appropriately, nontoxic in appearance HEENT: Normal external ears, EOMIs bilaterally, no scleral icterus CV: RRR (rate in the 50s during my exam), No concerning murmurs, rubs, or gallops R: LCTA bilaterally without concerning wheezing, rales, or rhonchi Skin: No concerning skin lesions or rashes on exposed skin - rash not re-examined today Neuro: No focal deficits, no resting tremor. During 3rd episode of orthostatic presyncope, myoclonic jerks of bilateral feet was observed. Upon re-evaluation, patient awake and sitting comfortably in chair and appropriately interactive Psych: Appropriate Const: Vital Signs, click to edit/add: Vital Signs - 24 hr 06/17/22 12:00 06/17/22 15:00 06/17/22 16:00 Temperature 97.8 F 97.8 F Pulse Rate [Pulse Oximeter] 72 72 77 Respiratory Rate 20 18 18 Blood Pressure [Ri ght Arm] 159/71 H 152/62 H Pulse Oximetry 93 91 Oxygen Delivery Me thod Nasal Cannula Nasal Cannula Oxygen Flow Rate 1 1 06/17/22 19:00 06/17/22 22:35 06/17/22 22:35 Temperature 98.0 F 98.0 F Pulse Rate [Pulse Oximeter] 83 66 66 Respiratory Rate 20 20 20 Blood Pressure [Ri ght Arm] 124/80 130/61 Pulse Oximetry 92 92 Oxygen Delivery Me thod Nasal Cannula Room Air Oxygen Flow Rate 1 06/18/22 02:41 06/18/22 07:00 Temperature 98.4 F 98.1 F Pulse Rate [Pulse Oximeter] 64 62 Respiratory Rate 18 18 Blood Pressure [Ri ght Arm] 156/58 H 148/42 H Pulse Oximetry 94 94 Oxygen Delivery Me thod Nasal Cannula Room Air Oxygen Flow Rate 1 Labs Labs: Laboratory Results - last 24 hr 06/17/22 06/18/22 06/18/22 06:37 06:34 06:34 WBC 8.22 RBC 4.00 L Hgb 10.3 L Hct 32.3 L MCV 81 MCH 26 MCHC 32 RDW Coeff of Torrey 15.2 Plt Count 158 Neut % (Auto) 73.1 H Lymph % (Auto) 10.8 L [place] % (Auto) 14.5 H Eos % (Auto) 0.6 Baso % (Auto) 0.9 Neut # (Auto) 6.00 Lymph # (Auto) 0.90 [place] # (Auto) 1.20 H Eos # (Auto) 0.05 Baso # (Auto) 0.07 Abs Immat Gran (auto) 0.01 Sodium 134 L Potassium 3.2 L Chloride 92 L Carbon Dioxide 33 H BUN 50 H Creatinine 1.8 H Estimated Creat Clear 32.33 Estimated GFR 36 Glucose 137 H Calcium 9.5 Total Bilirubin 0.6 Direct Bilirubin 0.3 AST 39 H ALT 16 Alkaline Phosphatase 86 Total Protein 8.2 Albumin 4.4
[2022-06-18] MEDS: POTASSIUM CHLORIDE 10 MEQ CAPSULE ER 40 MEQ PO ×2 (09:56→10:01)
[2022-06-18] MEDS: DOCUSATE SODIUM 100 MG CAPSULE PO ×2 (09:58→20:05)
[2022-06-18] MEDS: OMEPRAZOLE 20 MG CAPSULE DR PO ×2 (09:59→20:06)
[2022-06-18] MEDS: ASPIRIN 81 MG TABLET EC PO (09:59)
[2022-06-18] MEDS: METOPROLOL TARTRATE 25 MG TABLET 12.5 MG PO ×2 (10:02→20:08)
[2022-06-18] MEDS: MIDODRINE HCL 5 MG TABLET PO ×2 (10:02→20:07)
--- NOTE | 2022-06-18 10:48 | CRLHL7_ITS ---
For Patients: As a result of the Century Cures Act, medical imaging exams and procedure reports are released immediately into your electronic medical record. You may view this report before your referring provider. If you have questions, please contact your health care provider. INDICATION: Mental status changes TECHNIQUE: Noncontrast axial CT of the head. Coronal and sagittal reformats. Bone and soft tissue algorithms. COMPARISON: CT head 06/16/2022 FINDINGS: The ventricles and cortical sulci are stable in size/configuration. No midline shift or mass effect. No acute intracranial hemorrhage or extra-axial fluid collection. De Oliveira white matter differentiation is grossly maintained. Chronic microangiopathy limited changes, similar Calcific plaquing of the intracranial ICAs, with 6 mm nodular prominence in the expected location of the anterior communicating artery. Midline structures are unremarkable. Bony calvarium appears grossly intact. Near opacification of the right sphenoid sinus with air-fluid level and chronic osteitis changes. Bilateral lens implants. IMPRESSION: 1. Approximately 6 mm nodular prominence in the region of the anterior communicating artery, suspicious for saccular aneurysm. Consider CTA/MRA for further characterization. 2. No acute intracranial abnormality identified. No significant interval change relative to 06/16/2022. 3. Near opacification of the right sphenoid sinus with air-fluid level and chronic osteitis changes. Consider acute on chronic sinusitis. Please note that all CT scans at this facility use dose modulation, iterative reconstruction, and/or weight-based dosing when appropriate to reduce radiation dose to as low as reasonably achievable. Dictated by Ana Barlow MD @ 06/18/2022 11:40:16 AM (Electronically Signed)
[2022-06-18 11:00] VITALS: BP 180/66; PULSE 74; RESP 20; TEMP 36.4; O2SAT 96
[2022-06-18 11:07] LABS: ABG PCO2 49 mmHG (35-45); Base Excess ABG 9.5 mmol/L (-3.0-3.0); HCO3 ABG 35 mmol/L (21-28); Oxygen Saturation ABG 98 % (92-100); TCO2 ABG 32 mmol/l (21-30); pH ABG 7.46 (7.35-7.45)
--- NOTE | 2022-06-18 14:07 | PC.NURSE ---
End of Shift Note: Patient has had x4 episodes today of syncope. When we first got him up to go to the bathroom he was barely standing up and had to be lowered onto the bed. Then we had him on the bedside commode to try and void and he started to fall forward. Then he was in the recliner where he had a episode of not being very wide awake and had trouble understanding what he was trying to say. Did check a blood sugar at the time this was going on as he had not eaten anything yet for today and that was 130. He had a ABG drawn and went for a head CT. He also received a medication to try and raise his blood pressure more as he had had orthostatic changes in blood pressure. After receiving this medication he was able to participate with PT and OT.. Will continue to monitor until the next shift.
[2022-06-18 15:00] VITALS: BP 143/50; PULSE 66; RESP 12; TEMP 36.5; O2SAT 93
--- NOTE | 2022-06-18 18:38 | PC.NURSE ---
End of Shift([id number]): Patient pleasant, cooperative, and restless. Patient vitally stable, lungs clear, BS WNL, IV intact. Patient has had no syncopal episodes with this process description writer. Patient 1 assist, walker, gb. Patient denies pain. Patient on RA with sats in the low 90s. Patient walked the halls once during this shift, tolerated it very well. Patient tolerating regular diet and has not urinated during this shift but used urinal.
[2022-06-18 19:00] VITALS: BP 160/53; PULSE 65; RESP 16; TEMP 36.6; O2SAT 91
[2022-06-18] MEDS: CLOBETASOL 0.05% 1 EACH TOPICAL (19:45)
[2022-06-18] MEDS: PRAVASTATIN SODIUM 20 MG TABLET PO (20:06)
[2022-06-18] MEDS: ENOXAPARIN 30 MG/0.3ML INJ SUBCUT (20:08)
[2022-06-18 23:00] VITALS: BP 104/43; PULSE 65; PULSE 79; RESP 16; TEMP 36.6; O2SAT 91
[2022-06-19 02:34] VITALS: BP 169/56; PULSE 66; RESP 16; TEMP 36.6; O2SAT 97
[2022-06-19] MEDS: ACETAMINOPHEN 325 MG TABLET 650 MG PO ×2 (04:25→09:30)
--- NOTE | 2022-06-19 05:24 | PC.NURSE ---
[id number]: patient ambulates assist X1 with walker and gait belt in room. patient meds given per emar. patient encouraged to keep O2 on overnight as sats drop to low 80s on RA, while on O2 sats mid 90s. no syncopal episodes during this shift.
[2022-06-19] MEDS: LEVOTHYROXINE 125 MCG TABLET PO (06:40)
[2022-06-19 07:00] VITALS: BP 174/65; PULSE 70; RESP 16; TEMP 36.7; O2SAT 96
[2022-06-19 07:10] LABS: HCO3 VBG 35 mmol/L (21-28); PCO2 VBG 50 mmHG (40-50); PO2 VBG 39.5 mmHG (25-47); pH VBG 7.449 (7.32-7.43)
[2022-06-19 07:22] LABS: Basophils Absolute Auto 0.08 K/uL (0.00-0.30); Basophils Percent Auto 0.9 % (0.0-3.0); Eosinophils Absolute Auto 0.07 K/uL (0.00-0.50); Eosinophils Percent Auto 0.8 % (0.0-7.0); Hematocrit 33.1 % (37.0-53.0); Hemoglobin* 10.4 gm/dL (13.5-17.5); Immature Granulocytes Abs Auto 0.01 K/uL (0.00-0.30); Lymphocytes Percent Auto 15.6 % (20-44); Mean Corpuscular HGB Conc 31 gm/dL (32-36); Mean Corpuscular Hemoglobin 26 pg (26-34); Mean Corpuscular Volume 82 fL (80-100); Monocytes Percent Auto 14.1 % (0.0-11.0); Neutrophils Absolute Auto 6.21 K/uL (1.7-7.0); Neutrophils Percent Auto 68.5 % (42.0-72.0); Platelet Count* 171 K/uL (140-440); RDW Coefficient of Variation % 15.2 % (11.5-15.5); Red Blood Count 4.06 m/uL (4.30-5.90); White Blood Count* 9.06 K/uL (4.50-11.00)
[2022-06-19 07:29] LABS: Slide Review Reflex No
[2022-06-19 07:34] LABS: Chloride* 95 mmol/L (96-114); Potassium* 4.4 mmol/L (3.6-5.1); Sodium* 135 mmol/L (135-149)
[2022-06-19 07:37] LABS: Blood Urea Nitrogen* 52 mg/dL (7-30); Carbon Dioxide* 32 mmol/L (20-32); Creatinine* 1.7 mg/dL (0.5-1.5); Est. Creatinine Clearance* 34.24; Estimated Glomerular Filt Rate 39 ml/min; Glucose* 141 mg/dL (60-115)
[2022-06-19 07:38] LABS: Calcium* 9.5 mg/dL (8.4-10.6)
[2022-06-19] MEDS: METOPROLOL TARTRATE 25 MG TABLET 12.5 MG PO (09:25)
[2022-06-19] MEDS: CETIRIZINE HCL 10 MG TABLET PO (09:26)
[2022-06-19] MEDS: FAMOTIDINE 20 MG TABLET PO (09:26)
[2022-06-19] MEDS: NIFEdipine 30 MG TAB.ER.24 PO (09:26)
[2022-06-19] MEDS: OMEPRAZOLE 20 MG CAPSULE DR PO (09:26)
[2022-06-19] MEDS: FUROSEMIDE 20 MG TABLET PO (09:26)
[2022-06-19] MEDS: ASPIRIN 81 MG TABLET EC PO (09:26)
[2022-06-19] MEDS: DOCUSATE SODIUM 100 MG CAPSULE PO (09:26)
[2022-06-19] MEDS: SERTRALINE 50 MG TABLET PO (09:26)
[2022-06-19] MEDS: MIDODRINE HCL 5 MG TABLET PO (09:27)
[2022-06-19] MEDS: POTASSIUM CHLORIDE 10 MEQ CAPSULE ER 40 MEQ PO (09:27)
[2022-06-19 11:00] VITALS: BP 147/66; PULSE 65; RESP 18; O2SAT 96
--- NOTE | 2022-06-19 14:12 | PM.DS1 ---
DS: Providers Provider Date Seen: 06/19/22 Date of admission: 06/17/22 20:30 Primary care physician: Lion Martini MD Admitting Clinician: Yonny Montgomery MD Attending Physician on discharge: Susan Ny MD [place] Hospitalist Date of Discharge: 06/19/22 DS: Diagnosis Discharge Diagnosis (1) Hypotensive syncope: Status: Acute Problem details: Medication changes: 1. Decreased nifedipine from 90 mg --> 30 mg 2. DKA recent metoprolol dosing from 25 mg BID --> 12.5 mg BID 3. Lasix decreased from 40 mg daily --> 20 mg daily 4. Addition of midodrine on 06/18 (2) Heart failure with preserved ejection fraction: Status: Acute Problem details: Echocardiogram from 05/2022: Pulmonary HTN with a right ventricular pressure of 40 mmHg plus right atrial pressure (3) Pacemaker: Status: Acute Problem details: Interrogated 06/16/2022 (4) Pancreatic mass: Status: Acute Problem details: Noted on CT scan 06/17/2022, also has 7mm lung mass. PET scan recommended (5) Pruritus: Status: Acute Problem details: H2 blockers prescribed at discharge DS: Summary Hospital Course Hospital Course: HOSPITALIST DISCHARGE SUMMARY ATTENDING PHYSICIAN: Susan Ny MD FINAL DIAGNOSIS: Orthostatic hypotension leading to frequent syncope episode Coronary artery disease and congestive heart failure New pancreatic and pulmonary mass Pruritus HOSPITAL FOLLOWUP ISSUES: 1. Cardiovascular medication adjustment. Permissive hypertension is necessary given his Adrius severe degree of syncope. Adding midodrine was quite effective. There was no syncope after his 1st dose of midodrine. In the same time frame we did reduce all of his antihypertensives in his diuretics. We held his tramadol for pain. We set a new goal of his blood pressure to be 180-200 systolic. 2. Pancreatic and pulmonary mass - this was identified on CT. Head CT was age appropriate. He does have a pacemaker so brain MRI was not completed. He would need an outpatient workup for these findings PET scan is ordered and should be followed up on. 3. Chronic pruritus -he did much better on oral Pepcid and Zyrtec than topicals. Unclear etiology, may be related to underlying malignancy. 4. Hyponatremia and BRODIE resolving by day of discharge. REFERRALS WHILE ADMITTED: PT and OT REFERRALS AFTER DISCHARGE: PT and OT BRIEF HOSPITAL COURSE: Stab was having significant orthostatic hypotension and frequent and severe syncopal episodes even while admitted. A 30-40 point drop in his systolic was not an uncommon finding. We reduced his dose of Lasix, 2 antihypertensives and held his tramadol. We also added midodrine. He did very well after these changes. My partner, Dr. Isabel, did speak with Neurology. They felt no further workup related to orthostatic hypotension and syncope was necessary. We will ask his PCP to follow-up on his symptoms and medications. We stressed that a new baseline permissive hypertension may be necessary for quality of life. Given the finding of a new pancreatic mass, as well as a new pulmonary mass, on CT we also feel an oncology appointment and PET scan is necessary. VITAL SIGN, MEDICATION, LAB/MICRO, IMAGING SUMMARY (full details available in account tabs or by records request) DISCHARGE MEDICATIONS: See Reconciled list REVIEW OF SYSTEMS No new chest pain or dyspnea Pain controlled No voiding difficulties Tolerating diet challenge PHYSICAL EXAM: CONSTITUTIONAL: Alert. Mumbling some. VITAL SIGNS: see record. HEENT: Normocephalic, atraumatic. PERRL, EOMI, conjunctivae pink, no scleral icterus. Ears and nose externally normal. Pharynx normal. NECK: No JVD. No carotid bruit, no thyromegaly, no adenopathy. CHEST: Clear to auscultation bilaterally. HEART: S1 and S2 normal. Edema 1+ ABDOMEN: Soft, nontender. Normal bowel sounds. MUSCULOSKELETAL: No gross joint deformity or swelling. NEURO: Cranial nerves intact. Grossly intact. No asymmetric findings. SKIN: No rashes, petechiae, concerning changes PSYCHIATRIC: Mood euthymic. DISPOSITION: Home with Time spent on discharge 37 minutes. Status at Discharge Functional status at discharge: uses cane/walker Time Spent with Patient Time attestation: Total time spent providing and/or coordinating discharge services: Time spent: Greater than 30 minutes Exam Const: Vital Signs, click to edit/add: Vital Signs - 24 hr 06/18/22 15:00 06/18/22 15:00 06/18/22 19:00 Temperature 97.7 F 98 F Pulse Rate [Pulse Oximeter] 66 66 65 Respiratory Rate 12 12 16 Blood Pressure [Le ft Arm] Blood Pressure [Ri ght Arm] 143/50 H 160/53 H Pulse Oximetry 93 91 Oxygen Delivery Me thod Room Air Room Air Oxygen Flow Rate 06/18/22 23:00 06/18/22 23:00 06/19/22 02:34 Temperature 98 F 98 F Pulse Rate [Pulse Oximeter] 65 79 66 Respiratory Rate 16 16 16 Blood Pressure [Le ft Arm] Blood Pressure [Ri ght Arm] 104/43 L 169/56 H Pulse Oximetry 91 97 Oxygen Delivery Me thod Room Air Nasal Cannula Oxygen Flow Rate 2 2 06/19/22 07:00 06/19/22 07:00 06/19/22 11:00 Temperature 98.0 F Pulse Rate [Pulse Oximeter] 70 70 65 Respiratory Rate 16 16 18 Blood Pressure [Le ft Arm] 174/65 H 147/66 H Blood Pressure [Ri ght Arm] Pulse Oximetry 96 96 Oxygen Delivery Me thod Nasal Cannula Nasal Cannula Oxygen Flow Rate 2 2 DS: Data Data Completed and Pending Labs on day of discharge: Labs from last 24 hours 06/19/22 06/19/22 06/19/22 05:56 05:56 05:56 WBC 9.06 RBC 4.06 L Hgb 10.4 L Hct 33.1 L MCV 82 MCH 26 MCHC 31 L RDW Coeff of Torrey 15.2 Plt Count 171 Neut % (Auto) 68.5 Lymph % (Auto) 15.6 L [place] % (Auto) 14.1 H Eos % (Auto) 0.8 Baso % (Auto) 0.9 Neut # (Auto) 6.21 Lymph # (Auto) 1.40 [place] # (Auto) 1.30 H Eos # (Auto) 0.07 Baso # (Auto) 0.08 Abs Immat Gran (auto) 0.01 VBG pH 7.449 H VBG pCO2 50 VBG pO2 39.5 VBG HCO3 35 H Sodium 135 Potassium 4.4 Chloride 95 L Carbon Dioxide 32 BUN 52 H Creatinine 1.7 H Estimated Creat Clear 34.24 Estimated GFR 39 Glucose 141 H Calcium 9.5 Discharge Plan Discharge Disposition: Home, Self-Care Date of Admission: 06/17/22 20:30 Attending Provider on Discharge: Susan Ny Primary Care Provider: Lion Martini Condition: Improved Anticipated Discharge Date/Time: 06/19/22 11:03 Discharge Medications: New metoprolol tartrate 25 mg Tablet 12.5 mg PO BID Qty: 30 0RF potassium chloride 10 mEq Capsule, Extended Release 40 meq PO DAILY Qty: 60 0RF furosemide 20 mg Tablet 20 mg PO DAILY Qty: 30 0RF midodrine 5 mg Tablet 5 mg PO BID Qty: 60 0RF nifedipine 30 mg Tablet Extended Release 24hr 30 mg PO DAILY Qty: 30 0RF famotidine [Acid Therapy Site Coordinator (famotidine)] 20 mg Tablet 20 mg PO BID Qty: 60 0RF Continued polyethylene glycol 3350 [Miralax] 17 gram/dose powder 17 g PO DAILY PRN albuterol sulfate [Ventolin HFA] 90 mcg/actuation HFA aerosol inhaler 2 puff INHALATION Q4H PRN amoxicillin 500 mg capsule 2,000 mg PO . DIREC PRN Label Comments: TAKE 4 CAPSULES 1/2 HOUR BEFORE DENTAL PROCEDURE Rx Instructions: PRIOR TO DENTAL APPTS levothyroxine 125 mcg tablet 125 mcg PO DAILY omeprazole 20 mg capsule,delayed release(DR/EC) 20 mg PO BID pravastatin 20 mg tablet 20 mg PO HS sertraline 50 mg tablet 50 mg PO DAILY aspirin [Adult Low Dose Aspirin] 81 mg tablet,delayed release (DR/EC) 81 mg PO MOTUWETHFRSA Rx Instructions: TAKES 6 DAYS PER WEEK CURRENTLY ascorbic acid (vitamin C) 500 mg tablet 500 mg PO Q48H clobetasol 0.05 % ointment 1 applic TOPICAL BID PRN cetirizine [24Hour Allergy] 10 mg tablet 10 mg PO DAILY cholecalciferol (vitamin D3) 25 mcg (1,000 unit) tablet 25 mcg PO DAILY PRN Rx Instructions: TAKES IN WINTERTIME docusate sodium 50 mg capsule 50 mg PO BID sennosides-docusate sodium [Stool Softener-Laxative] 8.6-50 mg Tablet 1 tab PO BID PRNQty: 60 0RF Discontinued furosemide 40 mg tablet 40 mg PO DAILY potassium chloride 10 mEq Capsule, Extended Release 20 meq PO DAILY metoprolol tartrate 25 mg tablet 25 mg PO BID nifedipine 90 mg tablet extended release 90 mg PO DAILY tramadol 50 mg tablet 50 mg PO BID Rx Instructions: TAKE ONE TABLET BY MOUTH IN THE MORNING AND ONE TABLET AT BEDTIME. MAY USE EXTRA 1/2 TABLET DAILY NEEDED Discharge Orders: Discharge Order (Routine); Ordered 06/19/22 Ordered By: Susan L Ny Patient Education: Metoprolol (By mouth), Nifedipine (By mouth), Famotidine (By mouth), Furosemide (By mouth), Potassium Chloride (By mouth), Midodrine (By mouth), Syncope (DC) Additional Instructions: 1. The midodrine has made all the difference in helping you feel stronger and less like passing out. We also have decreased your cardiac meds so that your blood pressure will stay higher. This is ok. It is ok to have a blood pressure (top number; systolic) to be 180-200. 2. We are concerned about the findings on your CT scan. Dr. Isabel did go over the plan for an outpatient PET scan and your PCP can help direct care from these results. 3. Your itching may or may not be related to the findings on your CT scan. The new meds for itching are zyrtec and pepcid - keep taking these if you feel they help your itching. Activity Level: Activity as Tolerated Discharge Diet: Regular Follow Up Appointments: Lion Martini MD [Primary Care Provider] - 06/24/22 2:30 am (go over new goals for blood pressure and syncope history; go over CT findings and orders for PET Scan) Forms: [facility], [place] Info Instructions
--- NOTE | 2022-06-19 14:34 | PC.NURSE ---
Discharge Note: Went over discharge instructions with patient, and his son. Not sure how much of the information patient is getting as he is making jokes through the process. Explain to him the importance of him keeping oxygen on at all times. As oxygen and the new medication to help raise his blood pressure. He says his oxygen just falls off especially when he is sleeping because he is so restless at night. Did send a mask home with patient to use with the oxygen to hopefully get him to be more compliant with instructions.
== END 2022-06-19 14:42 | disposition home or self-care (01) | DRG 312 ==
LOC: ED 16:36 → MEDSURG 17:13
PROVIDERS: Family Medicine; Admitting Provider Internal Medicine; Emergency Provider Family Medicine; PCP Family Medicine; Visit Provider Internal Medicine
DX: I95.1 Orthostatic hypotension (principal); N17.9 Acute kidney failure, unspecified; E87.1 Hypo-osmolality and hyponatremia; I13.0 Hypertensive heart and chronic kidney disease with heart failure and stage 1 through stage 4 chronic kidney disease, or unspecified chronic kidney disease; I50.32 Chronic diastolic (congestive) heart failure; I45.2 Bifascicular block; N18.32 Chronic kidney disease, stage 3b; L29.9 Pruritus, unspecified; K86.9 Disease of pancreas, unspecified; R91.8 Other nonspecific abnormal finding of lung field; E87.6 Hypokalemia; E86.0 Dehydration; I27.20 Pulmonary hypertension, unspecified; S00.83XA Contusion of other part of head, initial encounter; W19.XXXA Unspecified fall, initial encounter; Z91.81 History of falling; F41.9 Anxiety disorder, unspecified; D50.9 Iron deficiency anemia, unspecified; I25.10 Atherosclerotic heart disease of native coronary artery without angina pectoris; I44.0 Atrioventricular block, first degree; Z95.0 Presence of cardiac pacemaker
CPT/HCPCS: 36415; 36600; 70450; 71045; 71250; 74176; 80048; 80053; 80069; 80076; 82077; 82803; 83605; 83735; 83880; 84443; 84484; 85025; 85027; 85379; 86140; 87635; 93005; 94761; 97116; 97161; 97165; 97530; 97535; 99284; 99285; G0378; A9270; J1650; J7120